=== PATIENT | female | born 1985 | race Caucasian/White ===

== ENCOUNTER 2016-07-29 00:44 | Emergency (ER) | payer SELFPAY ==
[~2016-07-29] VITALS: Ht 167.6 cm; Wt 145.1 kg
[2016-07-29] MEDS ORDERED: diphenhydrAMINE 50 MG/ML INJ (BENADRYL) IM ONE (01:30)
--- NOTE | 2016-07-29 01:52 | ED Headache ---
General Chief Complaint: Head/Cervical Problems Stated Complaint: VOMITING, HEADACHE Nursing Triage Note: patient reports migraine since waking up on the , patient reports having history of migraines, reports has taken benadryl today without improvement Nursing Sepsis Screen: No Definite Risk Source: patient History of Present Illness Time seen by provider: 01:12 Initial Comments PT ARRIVES VIA POV FROM HOME C/O HEADACHE SINCE WAKING AT 0800 THIS AM HAS HAD NAUSEA AND VOMITED X 1--IS NOT NAUSEATED AT THIS TIME HEADACHE IS BEHIND EYES AND LIKE BAND AROUND HEAD NO VISION CHANGES NO PARESTHESIAS OR MOTOR DEFICITS C/O BEING SLIGHTLY DIZZY NO NECK PAIN NO RECENT ILLNESS OR FEVER, ETC. PT STATES SHE HAS CHRONIC MIGRAINES, AND GETS 3-4 HEADACHES A WEEK. THIS HEADACHE IS EXACTLY THE SAME PREVIOUS HEADACHES TOOK 1 BENADRYL AND 1 ASPIRIN WITHOUT RELIEF STATES SHE HAS BEEN ON SEVERAL MAINTENANCE / PREVENTATIVE MEDICATIONS FOR HEADACHES, BUT HAS NOT HAD ANY FOR 3-4 MONTHS, PT STATES "NONE OF THEM HAVE EVER WORKED" PT STATES SHE USUALLY GETS A SHOT OF BENADRYL AND IT ALWAYS WORKS--STATES THE ORAL BENADRYL SOMETIMES WORKS PT STATES HER NEUROLOGIST TOLD HER NOT TO EVER TAKE TYLENOL OR IBUPROFEN BECAUSE IT WOULD MAKE HER HAVE REBOUND HEADACHES--HAS NOT SEEN NEUROLOGIST IN A LONG TIME. NO PCP--STATES SHE JUST MOVED HERE FROM [place]. Allergies and Home Medications Allergies Coded Allergies: No Known Drug Allergies (Unverified , 07/29/16) Home Medications No Active Prescriptions or Reported Meds Constitutional: see HPI dizziness Eyes: No Symptoms Reported Ears, Nose, Mouth, Throat: no symptoms reported Respiratory: no symptoms reported Cardiovascular: no symptoms reported Gastrointestinal: see HPI Genitourinary: no symptoms reported : No LMP: Jul 03, 2016 (PERIODS ALWAYS IRREGULARNO CONTROL) Musculoskeletal: no symptoms reported Skin: no symptoms reported Psychiatric/Neurological: See HPI Headache Past Agkmftd-Oailcz-Ruqujd Hx Patient Social History Alcohol Use: Rarely Uses Recreational Drug Use: Yes (THC, METH--DENIES IV USE) Smoking Status: Current Everyday Smoker Type Used: Cigarettes Recent Foreign Travel: No Contact w/Someone Who Travel: No Recent Infectious Disease Expo: No Recent Hopitalizations: No Surgeries HX Surgeries: Yes Surgeries: Gallbladder Respiratory Hx Respiratory Disorders: No Cardiovascular Hx Cardiac Disorders: Yes Cardiac Disorders: Atrial Fibrillation Neurological Hx Neurological Disorders: Yes Neurological Disorders: Headaches /Migraines Reproductive System : No Hx Reproductive Disorders: Yes (IRREGULAR PERIODS) Sexually Transmitted Disease: No Female Reproductive Disorders: Menstrual Problems Genitourinary Hx Genitourinary Disorders: No Gastrointestinal Hx Gastrointestinal Disorders: Yes (S/P SHARMILA) Gastrointestinal Disorders: Gall Bladder Disease Musculoskeletal Hx Musculoskeletal Disorders: No Endocrine Hx Endocrine Disorders: No HEENT HX ENT Disorders: No Cancer Hx Cancer: No Psychosocial Hx Psychiatric Problems: No Integumentary HX Skin/Integumentary Disorder: No Blood Transfusions Hx Blood Disorders: No Physical Exam Vital Signs Vital Sign - Last 12Hours 07/29/16 01:04 Temp 97.6 Pulse 83 Resp 18 B/P 183/130 Pulse Ox 97 O2 Delivery Room Air Capillary Refill : Less Than 3 Seconds General Appearance: WD/WN no apparent distress obese other (REEKS OF CIGARETTES) HEENT: PERRL/EOMI normal ENT inspection TMs normal pharynx normal Neck: full range of motion supple tender lateral (MILD )No tender midline Cardiovascular: normal peripheral pulses regular rate, rhythm no edema no JVD no murmur Respiratory: normal breath sounds no respiratory distress no accessory muscle use Gastrointestinal: non tender soft Back: normal inspection no CVA tenderness Extremities: normal range of motion non-tender normal inspection no pedal edema no calf tenderness normal capillary refill Psychiatric: alert oriented x 3 Crainal Nerves: normal hearing normal speech PERRL Coordination/Gait: normal gait Motor/Sensory: no motor deficit no sensory deficit Skin: normal color warm/dry Progress/Results/Core Measures Results/Orders My Orders Orders-SAMY EVANS DO Diphenhydramine Injection (Benadryl Inje (07/29/16 01:30) Ketorolac Injection (Toradol Injection) (07/29/16 02:00) Medications Given in ED Current Medications Medications Dose Ordered Sig/Eze Route Start Time Stop Time Status Last Admin Dose Admin Diphenhydramine HCl 50 mg ONCE ONCE IM 07/29/16 01:30 07/29/16 01:31 DC 07/29/16 01:38 50 MG Ketorolac Tromethamine 60 mg ONCE ONCE IM 07/29/16 02:00 07/29/16 02:01 DC 07/29/16 02:04 60 MG Vital Signs/I&O Vital Sign - Last 12Hours 07/29/16 07/29/16 01:04 02:24 Temp 97.6 Pulse 83 72 Resp 18 18 B/P 183/130 Pulse Ox 97 98 O2 Delivery Room Air Blood Pressure Mean: 147 Progress Note : Progress Note HEADACHE EASED AT DISMISSAL Departure Impression Impression: Primary Impression: Headache Additional Impression: REPORTED HISTORY OF CHRONIC HEADACHE DISORDER Disposition: 01 HOME, SELF-CARE Condition: Stable Departure-Patient Inst. Referrals: NO,LOCAL PHYSICIAN (PCP) Primary Care Physician Patient Instructions: Headache, Adult (DC) Add. Discharge Instructions: HOME, REST LOTS OF CLEAR LIQUIDS FOLLOW UP WITH OF CHOICE TO ESTABLISH CARE--LIST PROVIDED All discharge instructions reviewed with patient and/or family. Voiced understanding. Scripts No Active Prescriptions or Reported Meds Work/School Note: Local Medical Staff Listing SAMY EVANS DO Jul 29, 2016 01:52
[2016-07-29] MEDS ORDERED: KETOROLAC 60 MG/2 ML VIAL IM ONE (02:00)
[2016-07-29 02:24] VITALS: BP 145/98
== END 2016-07-29 02:25 | disposition home or self-care (01) ==
LOC: ER 00:49
DX: R51 Headache (principal); F17.210 Nicotine dependence, cigarettes, uncomplicated
CPT/HCPCS: 96372; 99282

== ENCOUNTER 2016-08-19 21:11 | Emergency (ER) | payer SELFPAY ==
[~2016-08-19] VITALS: Ht 167.6 cm; Wt 145.1 kg
--- OUTSIDE RECORDS SUMMARY | 2016-08-19 21:17 | XMS REPORT | Continuity of Care Document ---
Author Author [facility] Organization [facility] Address Unknown Phone Unavailable Care Team Providers Care Talent Acquisition Associate Name Role Phone NO, LOCAL PHYSICIAN PCP Unavailable Insurance Providers Payer Name Policy Number Subscriber Name Relationship Unknown Advance Directives Directive Response Recorded Date/Time Advance Directives No 07/29/16 1:04am Resuscitation Status Full Code 07/29/16 1:04am Chief Complaint and Reason for Visit Chief Complaint Head/Cervical Problems Reason for Visit Headache REPORTED HISTORY OF CHRONIC HEADACHE DISORDER Problems Active Problems Medical Problem Onset Date Status Headache Unknown Acute Medications No known medications. Social History Social History Problem Response Recorded Date/Time Alcohol Use Rarely Uses 07/29/2016 1:55am Recreational Drug Use Y THC, METH--DENIES IV USE 07/29/2016 1:55am Recent Foreign Travel No 07/29/2016 1:04am Recent Infectious Disease Exposure No 07/29/2016 1:04am Hospitalization with Isolation Denies 07/29/2016 1:04am Sexually Transmitted Disease No 07/29/2016 1:04am Smoking Status Current Everyday Smoker 07/29/2016 1:04am Type Used Cigarettes 07/29/2016 1:04am Recent Hopitalizations No 07/29/2016 1:04am Sexually Transmitted Disease No 07/29/2016 1:04am Hospitalization with Isolation Denies 07/29/2016 1:04am Query Response Start Date Stop Date Smoking Status Current Everyday Smoker Hospital Discharge Instructions No hospital discharge instructions. Plan of Care Discharge Date 07/29/16 2:25am Disposition 01 HOME, SELF-CARE Condition at Discharge Stable Instructions/Education Provided Headache, Adult (DC) Forms Provided Local Medical Staff Listing Prescriptions See Medication Section Referrals NO,LOCAL PHYSICIAN - Primary Care Physician Additional Instructions/Education HOME, REST LOTS OF CLEAR LIQUIDS FOLLOW UP WITH OF JEI TO ESTABLISH CARE--LIST PROVIDED All discharge instructions reviewed with patient and/or family. Voiced understanding. Functional Status Query Response Date Recorded Patient Orientation Person Place Time Situation July 29, 2016 1:09am Comprehension Ability Understands Concepts July 29, 2016 1:09am Allergies, Adverse Reactions, Alerts No known allergies. Immunizations No immunization records. Vital Signs Acute Vital Signs Vital Response Date/Time Temperature (Fahrenheit) 97.6 degrees F (97.6 - 99.5) 07/29/2016 1:04am Temperature (Calculated Celsius) 36.73855 degrees C (36.4 - 37.5) 07/29/2016 1:04am Pulse Rate (adult) 72 bpm (60 - 90) 07/29/2016 2:24am Respiratory Rate 18 bpm (12 - 24) 07/29/2016 2:24am O2 Sat by Pulse Oximetry 98 % (88 - 100) 07/29/2016 2:24am Blood Pressure 145/98 mm Hg 07/29/2016 2:24am Blood Pressure Mean 147 mm Hg 07/29/2016 1:04am Pain Numeric Pain Scale 4 07/29/2016 2:04am Height (Feet) 5 feet 07/29/2016 1:04am Height (Inches) 6 inches 07/29/2016 1:04am Height (Calculated Centimeters) 167.042031 cm 07/29/2016 1:04am Weight (Pounds) 320 pounds 07/29/2016 1:04am Weight (Calculated Kilograms) 145.630775 kilograms 07/29/2016 1:04am Capillary Refill Capillary Refill Less Than 3 Seconds 07/29/2016 1:04am Height 5 ft 6 in Weight 320 lb Body Mass Index 51.6 kg/m^2 Results No known relevant diagnostic tests, laboratory data and/or discharge summary. Procedures No known history of procedures. Encounters Encounter Location Arrival/Admit Date Discharge/Depart Date Attending Provider Departed Emergency Room [facility] 07/29/16 12:49am 2:25am SAMY EVANS DO Recent Diagnosis
[2016-08-19] MEDS ORDERED: amLODIPine 5 MG (NORVASC) TAB PO ONE (21:30)
[2016-08-19] MEDS ORDERED: ASPIRIN 81 MG CHEW (CHILDREN'S ASA) PO ONE (21:30)
[2016-08-19 21:37] LABS: BASOPHILS # (AUTO) 0.1 10^3/uL (0.0-0.1); BASOPHILS % (AUTO) 1 % (0-10); EOSINOPHILS # (AUTO) 0.3 10^3/uL (0.0-0.3); EOSINOPHILS % (AUTO) 2 % (0-10); LYMPHOCYTES # (AUTO) 4.1 X 10^3 (1.0-4.0); LYMPHOCYTES % (AUTO) 36 % (12-44); MEAN CORPUSCULAR HEMOGLOBIN 28 PG (25-34); MEAN CORPUSCULAR HGB CONC 34 G/DL (32-36); MEAN CORPUSCULAR VOLUME 84 FL (80-99); MEAN PLATELET VOLUME 9.7 FL (7.4-10.4); MONOCYTES % (AUTO) 9 % (0-12); NEUTROPHILS % (AUTO) 52 % (42-75); PLATELET COUNT 347 10^3/uL (130-400); RED BLOOD COUNT 4.81 10^6/uL (4.35-5.85); WHITE BLOOD COUNT 11.5 10^3/uL (4.3-11.0)
--- NOTE | 2016-08-19 21:45 | ED Chest Pain ---
General Chief Complaint: Chest Pain Stated Complaint: CHEST TIGHTNESS Nursing Triage Note: PT TO ED 6 W/ C/O CHEST TIGHTNESS ONSET THIS AM. DOES REPORT RECENT C/O SHAKING X3 DAYS. ALSO C/O DIZZINESS Nursing Sepsis Screen: No Definite Risk Source: patient Exam Limitations: no limitations History of Present Illness Time seen by provider: 21:15 Initial Comments Here with complaint of chest tightness this morning as well as shaking the last few days. Patient has history of hypertension and is on medicine for this but noted her blood pressure was elevated this morning so she took one of her mother 's blood pressure pills. This appears to be lisinopril 10 HCTZ combination. She doesn't present with elevated blood pressure tonight. Chest pain is a tightness in the center of her chest and is associated with dizziness. Denies nausea or vomiting or diaphoresis. Timing/Duration: 12 hours Severity/Quality: mild, tightness Location: central Radiation: no radiation Activities at Onset: none Prior CP/Workup: no prior chest pain ASA po MINK RANCHER: No NTG SL MINK RANCHER: No Associated Symptoms: No abdominal pain, No back pain, dizzinessNo nausea/ vomiting, No shortness of breath, No weakness Allergies and Home Medications Allergies Coded Allergies: No Known Drug Allergies (Unverified , 07/29/16) Home Medications No Active Prescriptions or Reported Meds Review of Systems Constitutional: see HPINo chills, No diaphoresis, No fever, No weakness Respiratory: No Symptoms Reported Cardiovascular: See HPI Chest PainDenies Edema, Lightheadedness Gastrointestinal: No Symptoms Reported Genitourinary: No Symptoms Reported Musculoskeletal: no symptoms reported Skin: no symptoms reported All Other Systems Reviewed Negative Unless Noted: Yes Past Nztgstp-Qtqonk-Obsjzp Hx Patient Social History Alcohol Use: Denies Use Recreational Drug Use: No Smoking Status: Current Everyday Smoker Type Used: Cigarettes Recent Foreign Travel: No Contact w/Someone Who Travel: No Recent Infectious Disease Expo: No Recent Hopitalizations: No Surgeries HX Surgeries: Yes Surgeries: Gallbladder Respiratory Hx Respiratory Disorders: No Cardiovascular Hx Cardiac Disorders: Yes Cardiac Disorders: Atrial Fibrillation Neurological Hx Neurological Disorders: Yes Neurological Disorders: Headaches /Migraines Reproductive System Hx Reproductive Disorders: Yes (IRREGULAR PERIODS) Sexually Transmitted Disease: No Female Reproductive Disorders: Menstrual Problems Genitourinary Hx Genitourinary Disorders: No Gastrointestinal Hx Gastrointestinal Disorders: Yes (S/P SHARMILA) Gastrointestinal Disorders: Gall Bladder Disease Musculoskeletal Hx Musculoskeletal Disorders: No Endocrine Hx Endocrine Disorders: No HEENT HX ENT Disorders: No Cancer Hx Cancer: No Psychosocial Hx Psychiatric Problems: No Integumentary HX Skin/Integumentary Disorder: No Blood Transfusions Hx Blood Disorders: No Reviewed Nursing Assessment Reviewed/Agree w Nursing PMH: Yes Family Medical History Significant Family History: No Pertinent Family Hx Physical Exam Vital Signs Vital Sign - Last 12Hours 08/19/16 21:15 Temp 97.8 Pulse 86 Resp 20 B/P 218/125 Pulse Ox 97 O2 Delivery Room Air Capillary Refill : Less Than 3 Seconds General Appearance: No Apparent Distress WD/WN Neck: Full Range of Motion Supple Respiratory: Lungs Clear Normal Breath Sounds Cardiovascular: Regular Rate, Rhythm No Murmur Gastrointestinal: Non Tender Soft Extremity: Normal Inspection Non Tender No Calf Tenderness Neurologic/Psychiatric: Alert Oriented x3 Skin: Normal Color Warm/Dry Focused Exam Lactic Acid Level Laboratory Tests Test 08/19/16 21:20 Alanine Aminotransferase (ALT/SGPT) 27U/L (0-55) Albumin 4.3G/DL (3.2-4.5) Alkaline Phosphatase 97U/L (40-136) Anion Gap 13MMOL/L (5-14) Aspartate Amino Transf (AST/SGOT) 19U/L (5-34) BUN/Creatinine Ratio 16 Blood Urea Nitrogen 16MG/DL (7-18) Calcium Level 9.4MG/DL (8.5-10.1) Carbon Dioxide Level 26MMOL/L (21-32) Chloride Level 102MMOL/L (98-107) Creatinine 0.98MG/DL (0.60-1.30) Estimat Glomerular Filtration Rate > 60 Glucose Level 85MG/DL (70-105) Magnesium Level 2.1MG/DL (1.8-2.4) Myoglobin 28.0NG/ML (10.0-92.0) Potassium Level 4.0MMOL/L (3.6-5.0) Sodium Level 141MMOL/L (135-145) Total Bilirubin 0.3MG/DL (0.1-1.0) Total Protein 7.7G/DL (6.4-8.2) Troponin I < 0.30NG/ML (<0.30) Progress/Results/Core Measures Results/Orders Lab Results Laboratory Tests Test 08/19/16 21:20 Range/Units Activated Partial Thromboplast Time 32 24-35 SEC Alanine Aminotransferase (ALT/SGPT) 27 0-55 U/L Albumin 4.3 3.2-4.5 G/DL Alkaline Phosphatase 97 40-136 U/L Anion Gap 13 5-14 MMOL/L Aspartate Amino Transf (AST/SGOT) 19 5-34 U/L BUN/Creatinine Ratio 16 Basophils # (Auto) 0.1 0.0-0.1 10^3/uL Basophils (%) (Auto) 1 0-10 % Blood Urea Nitrogen 16 7-18 MG/DL Calcium Level 9.4 8.5-10.1 MG/DL Carbon Dioxide Level 26 21-32 MMOL/L Chloride Level 102 98-107 MMOL/L Creatinine 0.98 0.60-1.30 MG/DL Eosinophils # (Auto) 0.3 0.0-0.3 10^3/uL Eosinophils (%) (Auto) 2 0-10 % Estimat Glomerular Filtration Rate > 60 Glucose Level 85 70-105 MG/DL Hematocrit 40 35-52 % Hemoglobin 13.6 11.5-16.0 G/DL INR Comment 1.0 0.8-1.4 Lymphocytes # (Auto) 4.1 H 1.0-4.0 X 10^3 Lymphocytes (%) (Auto) 36 12-44 % Magnesium Level 2.1 1.8-2.4 MG/DL Mean Corpuscular Hemoglobin 28 25-34 PG Mean Corpuscular Hemoglobin Concent 34 32-36 G/DL Mean Corpuscular Volume 84 80-99 FL Mean Platelet Volume 9.7 7.4-10.4 FL Monocytes # (Auto) 1.0 0.0-1.0 X 10^3 Monocytes (%) (Auto) 9 0-12 % Myoglobin 28.0 10.0-92.0 NG/ML Neutrophils # (Auto) 6.0 1.8-7.8 X 10^3 Neutrophils (%) (Auto) 52 42-75 % Platelet Count 347 130-400 10^3/uL Potassium Level 4.0 3.6-5.0 MMOL/L Prothrombin Time 13.0 12.2-14.7 SEC Red Blood Count 4.81 4.35-5.85 10^6/uL Red Cell Distribution Width 15.0 H 10.0-14.5 % Sodium Level 141 135-145 MMOL/L Total Bilirubin 0.3 0.1-1.0 MG/DL Total Protein 7.7 6.4-8.2 G/DL Troponin I < 0.30 <0.30 NG/ML White Blood Count 11.5 H 4.3-11.0 10^3/uL My Orders Orders-WANDY ALVARADO MD Cbc With Automated Diff (08/19/16:) Magnesium (08/19/16) Chest 1 View, Ap/Pa Only (08/19/16) Ekg Tracing (08/19/16) Cardiac Profile 1 (08/19/16) Comprehensive Metabolic Panel (08/19/16) Myoglobin Serum (08/19/16) Protime With Inr (08/19/16) Partial Thromboplastin Time (08/19/16) Monitor-Rhythm Ecg Trace Only (08/19/16) Lipid Panel (08/20/16 06:00) Aspirin Chewable Tablet (Baby Aspirin Ch (08/19/16 21:30) Saline Lock/Iv-Start (08/19/16:) Amlodipine Tablet (Norvasc Tablet) (08/19/16 21:30) Medications Given in ED Current Medications Medications Dose Ordered Sig/Eze Route Start Time Stop Time Status Last Admin Dose Admin Amlodipine Besylate 10 mg ONCE ONCE PO 08/19/16 21:30 08/19/16 21:31 DC 08/19/16 21:32 10 MG Aspirin 324 mg ONCE ONCE PO 08/19/16 21:30 08/19/16 21:31 DC 08/19/16 21:32 324 MG Vital Signs/I&O Vital Sign - Last 12Hours 08/19/16 21:15 Temp 97.8 Pulse 86 Resp 20 B/P 218/125 Pulse Ox 97 O2 Delivery Room Air Blood Pressure Mean: 156 Progress Note : Progress Note Seen and evaluated. IV, labs, EKG and chest x-ray ordered. ASA 324 mg by mouth given. Monitor patient. Norvasc 10 mg by mouth given. Monitor patient. 2240: Blood pressure improved to 150s over 90s. I did discuss the case with Dr. Wahl. He will see the patient in clinic tomorrow. There are no acute findings otherwise and she is improved. She states she still feels a little shaky but better. Discharged home with return precautions. Patient verbalize understanding instructions and agreement with plan. ECG Initial ECG Impression Date: Aug 19, 2016 Initial ECG Impression Time: 21:20 Initial ECG Rate: 85 Initial ECG Rhythm: Normal Sinus Initial ECG Impression: Normal Initial ECG Comparisson: No Previous ECG Available Comment Sinus rhythm with normal axis. No evidence of ST elevation CA. No previous available for comparison. Interpreted by me. Diagnostic Imaging Diagonstic Imaging: Xray Plain Films/CT/US/NM/MRI: chest Comments NAME: KAREN YOUNGBLOOD [facility] REC#: [id number] PT STATUS: REG ER : 1985 PHYSICIAN: WANDY ALVARADO MD ADMIT DATE: 08/19/16/ER Signed Date of Exam: 08/19/16 CHEST 1 VIEW, AP/PA ONLY Portable chest. INDICATION: Chest pain. FINDINGS: There is no focal alveolar consolidation evident. There is no effusion demonstrated. There is no pneumothorax. Heart size and mediastinal contours appear appropriate. Pulmonary vascularity appears within normal limits. No acute osseous abnormality is demonstrated. IMPRESSION: 1. No radiographic evidence of an acute cardiopulmonary process. Dictated by: Dictated on workstation # [id number] Dict: 08/19/162142 Trans: 08/19/[id number] Interpreted by: MI LEVY MD Electronically signed by:MI LEVY MD 08/19/162209 Departure Impression Impression: Primary Impression: Uncontrolled hypertension Disposition: 01 HOME, SELF-CARE Condition: Improved Departure-Patient Inst. Decision time for Depature: 22:52 Referrals: KAREN WAHL MD NO,LOCAL PHYSICIAN (PCP) Primary Care Physician Patient Instructions: Chest Pain (DC), High Blood Pressure (DC) Add. Discharge Instructions: All discharge instructions reviewed with patient and/or family. Voiced understanding. Take medications as directed. Call Dr. Wahl's office in the morning for appointment tomorrow. Let them know that the case was discussed with him and he wanted to see you in clinic same day. Return for worsening, fever, vomiting , weakness, breathing problems or other concerns as needed. Continue home medications as directed. Scripts Amlodipine Besylate 10 Mg [id number] Mg PO DAILY #30 TAB Ref 0 Prov:WANDY ALVARADO MD 08/19/16 WANDY ALVARADO MD Aug 19, 2016 21:44
[2016-08-19 21:52] LABS: ALANINE AMINOTRANSFERASE 27 U/L (0-55); ALBUMIN 4.3 G/DL (3.2-4.5); ANION GAP 13 MMOL/L (5-14); ASPARTATE AMINO TRANSFERASE 19 U/L (5-34); BILIRUBIN,TOTAL 0.3 MG/DL (0.1-1.0); BLOOD UREA NITROGEN 16 MG/DL (7-18); BUN/CREATININE RATIO 16; CALCIUM 9.4 MG/DL (8.5-10.1); CARBON DIOXIDE 26 MMOL/L (21-32); CHLORIDE 102 MMOL/L (98-107); CREATININE SERUM 0.98 MG/DL (0.60-1.30); GFR ESTIMATED > 60; GLUCOSE 85 MG/DL (70-105); MAGNESIUM 2.1 MG/DL (1.8-2.4); SODIUM 141 MMOL/L (135-145); TOTAL PROTEIN 7.7 G/DL (6.4-8.2)
[2016-08-19] MEDS ORDERED: AMLO10TA2 PO (22:54)
[2016-08-19 23:00] VITALS: BP 155/94
== END 2016-08-19 23:00 | disposition home or self-care (01) ==
LOC: EDUNIT# 21:11 → ER 21:13
DX: I16.0 Hypertensive urgency (principal); F17.210 Nicotine dependence, cigarettes, uncomplicated; Z79.899 Other long term (current) drug therapy
CPT/HCPCS: 36415; 71010; 80053; 83735; 83874; 84484; 85025; 85610; 85730; 93005

== ENCOUNTER → 2017-05-07 | Outpatient (CLI) | payer MEDICAID ==
[~2017-05-07] MED LIST: AMLO10TA2 PO
--- NOTE | 2017-05-07 15:43 | Diagnostic Imaging Report ---
EXAMINATION: Pelvic ultrasound. INDICATION: Dysfunctional uterine bleeding. FINDINGS: There are no prior studies available for comparison. The uterus is nongravid and not enlarged measuring 7.3 x 5.3 x 4.4 cm. The endometrial lining is slightly thickened measuring 7-8 mm (normal 5 mm or less). This finding is nonspecific however. Correlation with the patient's menstrual cycle will be recommended. There is no focal mass involving the uterus. Both ovaries are identified. There is blood flow to each ovary. There are also a few subcentimeter follicles on each ovary. There is no solid pelvic mass or free fluid collection noted. IMPRESSION: There is no acute pelvic abnormality identified. Dictated by: Dictated on workstation # [id number]
== END ==
LOC: RAD 09:41
PROVIDERS: ATTEND Family Medicine
DX: N93.8 Other specified abnormal uterine and vaginal bleeding (principal)
CPT/HCPCS: 76830; 76856

== ENCOUNTER 2017-07-28 12:51 | Emergency (ER) | payer MEDICAID ==
[~2017-07-28] VITALS: Ht 167.6 cm; Wt 147.0 kg
[2017-07-28] MEDS ORDERED: METF500T8 (13:36)
[2017-07-28] MEDS ORDERED: ZONI100C3 PO (13:48)
--- NOTE | 2017-07-28 14:04 | ED Headache ---
General Chief Complaint: Head/Cervical Problems Stated Complaint: MIGRAINE Nursing Triage Note: pt reprots migraine x 4 days. pt states home medication has not been helping. pt reprts epsiodes of n/v but none today. Nursing Sepsis Screen: No Definite Risk Source: patient Exam Limitations: no limitations History of Present Illness Date Seen by Provider: Jul 28, 2017 Time Seen by Provider: 14:04 Initial Comments 31-year-old female patient presents to the emergency department with reports of a four-day onset of migraine headache. Patient states she has chronic migraines , but is typically able to control them with her usual medications. Denies using her home medications for this headache. States she moved here recently from [place] (later states she moved here one year ago from [place]). Patient had a neurologist in [place], but has not established care with a neurologist since moving here. Patient states she has seen TERESA Juarez at [facility] since moving here. Reports headache feels like her typical migraine headaches. Describes the headache as bandlike around the head. Does complain of photophobia, sound sensitivity, nausea, and vomiting. States she is not able to take Tylenol or ibuprofen [id number] for her headaches because "they make the headaches worse." Timing/Duration: waxing and waning, other (four-day onset) Severity/Quality: pressure, throbbing Prior Headaches/Recent Trauma: chronic headaches Modifying Factors: worse with exposure to light, worse with other (exposure to sound) Allergies and Home Medications Allergies Coded Allergies: No Known Drug Allergies (Unverified , 07/29/16) Home Medications Amlodipine Besylate 10 Mg Tablet, 10 MG PO DAILY Prescribed by: WANDY ALVARADO on 08/19/16 225 Ondansetron 8 Mg Tab.rapdis, 8 MG PO Q6H PRN for NAUSEA/VOMITING-1ST LINE Prescribed by: MAXI REARDON on 07/28/17 1535 Zonisamide 100 Mg Capsule, 100 MG PO BID, (Reported) Constitutional: No chills, No dizziness, No fever, No malaise, No weakness Eyes: Photophobia Ears, Nose, Mouth, Throat: no symptoms reported Respiratory: no symptoms reported Cardiovascular: no symptoms reported Gastrointestinal: No abdominal pain, No constipation, No diarrhea, nausea, vomiting Genitourinary: no symptoms reported Musculoskeletal: no symptoms reported Skin: no symptoms reported Psychiatric/Neurological: Headache, Denies Numbness, Denies Paresthesia, Denies Seizure, Denies Tingling, Denies Weakness All Other Systems Reviewed Negative Unless Noted: Yes (Negative excepted noted.) Past Rzbhirx-Vqquzt-Wshzlr Hx Patient Social History Alcohol Use: Denies Use Recreational Drug Use: No Smoking Status: Current Someday Smoker Type Used: Cigarettes Recent Foreign Travel: No Contact w/Someone Who Travel: No Recent Infectious Disease Expo: No Recent Hopitalizations: No Physical Abuse: No Sexual Abuse: No Mistreated: No Fear: No Surgeries History of Surgeries: Yes Surgeries: Gallbladder Respiratory History of Respiratory Disorde: No Cardiovascular History of Cardiac Disorders: Yes Cardiac Disorders: Atrial Fibrillation, Hypertension Neurological History of Neurological Disord: Yes Neurological Disorders: Headaches /Migraines Reproductive System Hx Reproductive Disorders: Yes (IRREGULAR PERIODS) Sexually Transmitted Disease: No Female Reproductive Disorders: Menstrual Problems Genitourinary History of Genitourinary Disor: No Gastrointestinal History of Gastrointestinal Di: Yes (S/P SHARMILA) Gastrointestinal Disorders: Gall Bladder Disease Musculoskeletal History of Musculoskeletal Dis: No Endocrine History of Endocrine Disorders: Yes Endocrine Disorders: Diabetes, Non-Insulin dep HEENT History of HEENT Disorders: No Cancer History of Cancer: No Psychosocial History of Psychiatric Problem: No Suicide Risk Score: 0 Integumentary History of Skin or Integumenta: No Blood Transfusions History of Blood Disorders: No Reviewed Nursing Assessment Reviewed/Agree w Nursing PMH: Yes Family Medical History Significant Family History: No Pertinent Family Hx Physical Exam Vital Signs Vital Signs - First Documented 07/28/17 13:30 Temp 97.8 Pulse 90 Resp 18 B/P (MAP) 158/106 (123) Pulse Ox 95 Capillary Refill : Less Than 3 Seconds General Appearance: WD/WN, no apparent distress HEENT: PERRL/EOMI, normal ENT inspection, TMs normal, pharynx normal, photophobia Neck: full range of motion, supple, normal inspection, other (paraspinous muscles tender at the base of the skull bilaterally) Cardiovascular: normal peripheral pulses, regular rate, rhythm, no edema, no gallop, no murmur Respiratory: lungs clear, normal breath sounds, no respiratory distress, no accessory muscle use Gastrointestinal: normal bowel sounds, non tender, soft, no organomegaly Back: normal inspection Extremities: no pedal edema, normal capillary refill Psychiatric: alert, oriented x 3 Crainal Nerves: normal hearing, normal speech, PERRL Coordination/Gait: normal finger to nose, normal gait, negative Romberg's sign Motor/Sensory: no motor deficit, no sensory deficit, no pronator drift Skin: normal color, warm/dry Progress/Results/Core Measures Results/Orders My Orders Orders - MAXI REARDON Ketorolac Injection (Toradol Injection) (07/28/17 14:59) Orphenadrine Injection (Norflex Injectio (07/28/17 14:59) Ondansetron Injection (Zofran Injectio (07/28/17 15:00) Saline Lock/Iv-Start (07/28/17 14:59) Ns Iv 1000 Ml (Sodium Chloride 0.9%) (07/28/17 14:59) Diphenhydramine Injection (Benadryl Inje (07/28/17 14:59) Acetaminophen Tablet (Tylenol Tablet) (07/28/17 15:59) Dexamethasone Injection (Decadron Inject (07/28/17 16:00) Medications Given in ED Vital Signs/I&O Vital Sign - Last 12Hours 07/28/17 07/28/17 13:30 16:14 Temp 97.8 Pulse 90 79 Resp 18 18 B/P (MAP) 158/106 (123) 160/106 Pulse Ox 95 96 Blood Pressure Mean: 123 Departure Communication (Admissions) Progress Notes Patient seen and evaluated. Patient given 1 liter normal saline, 30 mg Toradol IV, Benadryl 25 mg, Norflex 60 mg, and Zofran 4 mg IV. Patient reports symptoms improved, but states pain is now a 2/10. Patient states she typically receives a steroid in her IV for the migraines. Patient Does not want any narcotics given. Patient given 1000 g Tylenol by mouth and Decadron 10 mg IV 1 dose. Discharge to home. Patient follow-up with her primary care provider for recheck. Impression Impression: Primary Impression: Migraine headache Qualified Codes: G43.909 - Migraine, unspecified, not intractable, without status migrainosus Disposition: 01 HOME, SELF-CARE Condition: Improved Departure-Patient Inst. Decision time for Depature: 15:22 Referrals: [facility] ([place]) Primary Care Physician JACQUELIN CABRERA APRN (Family) Primary Care Physician Patient Instructions: Migraine Headache (DC) Add. Discharge Instructions: All discharge instructions reviewed with patient and/or family. Voiced understanding. Continue usual home medications. Follow-up with your family practitioner at [facility] for recheck, call for appointment time today. Return to the emergency department for worsened pain, vomiting, dizziness, fever, shortness of air, seizure, chest pain, or any other concerns. Scripts Ondansetron (Ondansetron Odt) 8 Mg Tab.rapdis 8 MG PO Q6H Y for NAUSEA/VOMITING-1ST LINE, #10 TAB 0 Refills Prov: MAXI REARDON 07/28/17 MAXI REARDON Jul 28, 2017 14:04
[2017-07-28] MEDS ORDERED: diphenhydrAMINE 50 MG/ML INJ (BENADRYL) IV STA (14:59)
[2017-07-28] MEDS ORDERED: NS IV 1000 ML 1,000 ML IV ONE (14:59)
[2017-07-28] MEDS ORDERED: ORPHENADRINE 60 MG/2 ML (NORFLEX) AMP IV STA (14:59)
[2017-07-28] MEDS ORDERED: KETOROLAC 30 MG/ML VIAL IVP STA (14:59)
[2017-07-28] MEDS ORDERED: ONDANSETRON 4 MG/2 ML (SDV) Z0FRAN IVP ONE (15:00)
[2017-07-28] MEDS ORDERED: ONDA8TAB13 PO (15:35)
[2017-07-28] MEDS ORDERED: ACETAMINOPHEN 500 MG TAB (TYLENOL) PO STA (15:59)
[2017-07-28] MEDS ORDERED: DEXAMETHASONE 10 MG/ML (DECADRON) 1 ML VIAL IV ONE (16:00)
[2017-07-28 16:14] VITALS: BP 160/106
== END 2017-07-28 16:15 | disposition home or self-care (01) ==
LOC: EDUNIT# 12:51 → ER 12:53
DX: G43.909 Migraine, unspecified, not intractable, without status migrainosus (principal); I48.91 Unspecified atrial fibrillation; I10 Essential (primary) hypertension; E11.9 Type 2 diabetes mellitus without complications; F17.210 Nicotine dependence, cigarettes, uncomplicated; Z90.49 Acquired absence of other specified parts of digestive tract

== ENCOUNTER 2018-04-29 15:18 | Emergency (ER) | payer SELFPAY ==
[~2018-04-29] VITALS: Ht 167.6 cm; Wt 145.1 kg
[~2018-04-29 15:18] MED LIST changes: -AMLO10TA2 PO; +AMLO10TA6 PO; +METF500T8; +ONDA8TAB13 PO; +ZONI100C3 PO
--- OUTSIDE RECORDS SUMMARY | 2018-04-29 15:22 | XMS REPORT ---
Author Author JACQUELIN CABRERA Organization [facility] Address [address] [place] [address] Care Team Providers Care Grove Superintendent Name Role Phone JACQUELIN CABRERA Unavailable PROBLEMS Type Condition ICD9-CM Code [id number] Code Onset Dates Condition Status SNOMED Code Problem Mixed hyperlipidemia E78.2 Active 834029363 Problem Morbid (severe) obesity due to excess calories E66.01 Active 109203178 Problem Essential hypertension I10 Active 03216796 Problem Iron deficiency anemia secondary to inadequate dietary iron intake D50.8 Active 699667632 Problem Subclinical hypothyroidism E03.9 Active 36815096 Problem Tobacco abuse counseling Z71.6 Active 236936892 Problem Tobacco abuse Z72.0 Active 603080535 Problem Body mass index (BMI) of 50-59.9 in adult Z68.43 Active 682758545 Problem Migraine without aura and without status migrainosus, not intractable G43.009 Active 405712943 Problem Hyperinsulinemia E16.1 Active 92475034 Problem Dysfunctional uterine bleeding N93.8 Active 88860386 ALLERGIES No Information ENCOUNTERS Encounter Location Date Diagnosis [facility] [id number] [place] [address] September, Abnormal TSH R94.6 [facility] [id number] [place] [address] September, Essential hypertension I10 ; Migraine without aura and without status migrainosus, not intractable G43.009 ; Morbid (severe) obesity due to excess calories E66.01 ; Iron deficiency anemia secondary to inadequate dietary iron intake D50.8 ; Hyperinsulinemia E16.1 ; Dysfunctional uterine bleeding N93.8 ; Subclinical hypothyroidism E03.9 ; Encounter for Depo-Provera contraception Z30.42 ; Tobacco abuse counseling Z71.6 and Tobacco abuse Z72.0 [facility] [id number] [place] [address] Jun, Encounter for immunization Z23 [place] [id number] [place] [address] May, Iron deficiency anemia secondary to inadequate dietary iron intake D50.8 and Subclinical hypothyroidism E03.[address] [address] May, Abnormal CBC measurement R79.89 and Abnormal TSH R94.6 [place] [address] [address] Apr, [address] [address] Apr, Abnormal CBC measurement R79.89 and Abnormal TSH R94.[address] [address] Apr, Well woman exam Z01.419 and Dysfunctional uterine bleeding N93.8 [place] [id number] [place] [address] 16 Apr, 2017 Encounter to establish care Z76.89 ; Essential hypertension I10 ; Screening cholesterol level Z13.220 and Screening for diabetes mellitus Z13.1 [place] [id number] [place] [address] 09 Apr, 2017 Encounter to establish care Z76.89 ; Essential hypertension I10 ; Screening cholesterol level Z13.220 ; Screening for diabetes mellitus Z13.1 ; History of atrial fibrillation Z86.79 ; Migraine without aura and without status migrainosus, not intractable G43.009 ; Body mass index (BMI) of 50-59.9 in adult Z68.43 and Morbid (severe) obesity due to excess calories E66.01 [facility] [address] [place] [id number] [place] [phone] Mar, Essential hypertension I10 IMMUNIZATIONS No Known Immunizations SOCIAL HISTORY Never Assessed REASON FOR VISIT Medication changes/levothyroxine PLAN OF CARE VITAL SIGNS MEDICATIONS Medication Instructions Dosage Frequency Start Date End Date Duration Status Levothyroxine Sodium 25 MCG Orally Once a day 1 tablet on an empty stomach in the morning 24h September, 30 day(s) Active RESULTS No Results PROCEDURES No Known procedures INSTRUCTIONS MEDICATIONS ADMINISTERED No Known Medications MEDICAL (GENERAL) HISTORY Type Description Date Medical History HTN Medical History A Fib Medical History Migraines without auras Surgical History Gallbladder 2008 Hospitalization History Migraines
--- OUTSIDE RECORDS SUMMARY | 2018-04-29 15:23 | XMS REPORT ---
Author Author CAROL COLE [facility] Address [address] [place] [address] Care Team Providers Care Photogrammetric Engineer Name Role Phone CAROL COLE Unavailable PROBLEMS Type Condition ICD9-CM Code [id number] Code Onset Dates Condition Status SNOMED Code Problem Subclinical hypothyroidism E03.9 Active 81486491 Problem Iron deficiency anemia secondary to inadequate dietary iron intake D50.8 Active 490731988 Problem Dysfunctional uterine bleeding N93.8 Active 95163064 Problem Body mass index (BMI) of 50-59.9 in adult Z68.43 Active 545658917 Problem Essential hypertension I10 Active 82741280 Problem Mixed hyperlipidemia E78.2 Active 604997779 Problem Morbid (severe) obesity due to excess calories E66.01 Active 980967219 Problem Migraine without aura and without status migrainosus, not intractable G43.009 Active 863328721 ALLERGIES No Known Allergies ENCOUNTERS Encounter Location Date Diagnosis [place] [address] [address] September, [place] [address] [address] Jun, Encounter for immunization Z23 [place] [address] [address] May, Iron deficiency anemia secondary to inadequate dietary iron intake D50.8 and Subclinical hypothyroidism E03.9 [place] [address] [address] May, Abnormal CBC measurement R79.89 and Abnormal TSH R94.6 [place] [address] [address] Apr, [place] [address] [address] Apr, Abnormal CBC measurement R79.89 and Abnormal TSH R94.6 [facility] [id number] [address] Apr, Well woman exam Z01.419 and Dysfunctional uterine bleeding N93.8 [facility] [id number] [address] 16 Apr, 2017 Encounter to establish care Z76.89 ; Essential hypertension I10 ; Screening cholesterol level Z13.220 and Screening for diabetes mellitus Z13.1 [facility] [id number] [address] 09 Apr, 2017 Encounter to establish care Z76.89 ; Essential hypertension I10 ; Screening cholesterol level Z13.220 ; Screening for diabetes mellitus Z13.1 ; History of atrial fibrillation Z86.79 ; Migraine without aura and without status migrainosus, not intractable G43.009 ; Body mass index (BMI) of 50-59.9 in adult Z68.43 and Morbid (severe) obesity due to excess calories E66.01 [facility] [address] [id number] [address] Mar, Essential hypertension I10 IMMUNIZATIONS No Known Immunizations SOCIAL HISTORY Never Assessed REASON FOR VISIT dx with HTN a year ago...was started on BP medication...lost medical insurance...quit taking meds about 6 months ago. today she is feeling shakey, headache, denies blurred vision, does report off and on dizziness. tobias PLAN OF CARE Activity Details Follow Up prn Reason: VITAL SIGNS Height 66 in 2017-03-07 Weight 324.4 lbs 2017-03-07 Temperature 98.0 degrees Fahrenheit 2017-03-07 Heart Rate 76 bpm 2017-03-07 Respiratory Rate 20 2017-03-07 BMI 52.35 kg/m2 2017-03-07 Blood pressure systolic 156 mmHg 2017-03-07 Blood pressure diastolic 94 mmHg 2017-03-07 MEDICATIONS Medication Instructions Dosage Frequency Start Date End Date Duration Status Norvasc 10 MG Orally Take 1/2 tablet x 7 days followed by one tablet daily as directed Mar, 30 day(s) Active RESULTS No Results PROCEDURES No Known procedures INSTRUCTIONS MEDICATIONS ADMINISTERED No Known Medications MEDICAL (GENERAL) HISTORY Type Description Date Medical History HTN Medical History A Fib Medical History Migraines without auras Surgical History Gallbladder 2009 Hospitalization History Migraines
--- OUTSIDE RECORDS SUMMARY | 2018-04-29 15:23 | XMS REPORT ---
Author Author JACQUELIN CABRERA Organization [facility] Address [address] [place] [address] Care Team Providers Care Electric Brain Wave Equipment Mechanic Name Role Phone JCAQUELIN CABRERA Unavailable PROBLEMS Type Condition ICD9-CM Code [id number] Code Onset Dates Condition Status SNOMED Code Problem Mixed hyperlipidemia E78.2 Active 856999294 Problem Morbid (severe) obesity due to excess calories E66.01 Active 032782483 Problem Essential hypertension I10 Active 99826591 Problem Iron deficiency anemia secondary to inadequate dietary iron intake D50.8 Active 041836998 Problem Subclinical hypothyroidism E03.9 Active 31037210 Problem Tobacco abuse counseling Z71.6 Active 013643035 Problem Tobacco abuse Z72.0 Active 326950010 Problem Body mass index (BMI) of 50-59.9 in adult Z68.43 Active 275377252 Problem Migraine without aura and without status migrainosus, not intractable G43.009 Active 759106156 Problem Hyperinsulinemia E16.1 Active 07231096 Problem Dysfunctional uterine bleeding N93.8 Active 48344305 ALLERGIES No Information ENCOUNTERS Encounter Location Date Diagnosis [facility] [id number] [place] [address] September, Abnormal TSH R94.6 [facility] [id number] [place] [address] September, Essential hypertension I10 ; Migraine without aura and without status migrainosus, not intractable G43.009 ; Morbid (severe) obesity due to excess calories E66.01 ; Iron deficiency anemia secondary to inadequate dietary iron intake D50.8 ; Hyperinsulinemia E16.1 ; Dysfunctional uterine bleeding N93.8 ; Subclinical hypothyroidism E03.9 ; Encounter for Depo-Provera contraception Z30.42 ; Tobacco abuse counseling Z71.6 and Tobacco abuse Z72.0 [facility] [id number] [place] [address] Jun, Encounter for immunization Z23 [place] [id number] [place] [address] May, Iron deficiency anemia secondary to inadequate dietary iron intake D50.8 and Subclinical hypothyroidism E03.[address] [address] May, Abnormal CBC measurement R79.89 and Abnormal TSH R94.6 [place] [address] [address] Apr, [address] [address] Apr, Abnormal CBC measurement R79.89 and Abnormal TSH R94.[address] [address] Apr, Well woman exam Z01.419 and Dysfunctional uterine bleeding N93.8 [place] [id number] [place] [address] 16 Apr, 2017 Encounter to establish care Z76.89 ; Essential hypertension I10 ; Screening cholesterol level Z13.220 and Screening for diabetes mellitus Z13.1 [place] [id number] [place] [address] 09 Apr, 2017 Encounter to establish care Z76.89 ; Essential hypertension I10 ; Screening cholesterol level Z13.220 ; Screening for diabetes mellitus Z13.1 ; History of atrial fibrillation Z86.79 ; Migraine without aura and without status migrainosus, not intractable G43.009 ; Body mass index (BMI) of 50-59.9 in adult Z68.43 and Morbid (severe) obesity due to excess calories E66.01 [facility] [address] [place] [id number] [place] [phone] Mar, Essential hypertension I10 IMMUNIZATIONS No Known Immunizations SOCIAL HISTORY Never Assessed REASON FOR VISIT Med per Lab Result PLAN OF CARE VITAL SIGNS MEDICATIONS Medication Instructions Dosage Frequency Start Date End Date Duration Status MetFORMIN HCl ER 500 mg Orally Once a day 1 tablet with evening meal 24h Apr, Active RESULTS No Results PROCEDURES No Known procedures INSTRUCTIONS MEDICATIONS ADMINISTERED No Known Medications MEDICAL (GENERAL) HISTORY Type Description Date Medical History HTN Medical History A Fib Medical History Migraines without auras Surgical History Gallbladder 2009 Hospitalization History Migraines
--- OUTSIDE RECORDS SUMMARY | 2018-04-29 15:23 | XMS REPORT ---
Author Author CABRERA JACQUELIN Organization [facility] Address [address] [place] [address] Care Team Providers Care Associate Editor Name Role Phone JACQUELIN CABRERA Unavailable PROBLEMS Type Condition ICD9-CM Code [id number] Code Onset Dates Condition Status SNOMED Code Problem Mixed hyperlipidemia E78.2 Active 071625612 Problem Morbid (severe) obesity due to excess calories E66.01 Active 228911445 Problem Essential hypertension I10 Active 92781229 Problem Iron deficiency anemia secondary to inadequate dietary iron intake D50.8 Active 000179542 Problem Subclinical hypothyroidism E03.9 Active 81681221 Problem Tobacco abuse counseling Z71.6 Active 211130414 Problem Tobacco abuse Z72.0 Active 217995234 Problem Body mass index (BMI) of 50-59.9 in adult Z68.43 Active 473925713 Problem Migraine without aura and without status migrainosus, not intractable G43.009 Active 940161593 Problem Hyperinsulinemia E16.1 Active 01092689 Problem Dysfunctional uterine bleeding N93.8 Active 66080263 ALLERGIES No Known Allergies ENCOUNTERS Encounter Location Date Diagnosis [facility] [id number] [place] [address] September, Abnormal TSH R94.6 [facility] [id number] [place] [address] September, Essential hypertension I10 ; Migraine without aura and without status migrainosus, not intractable G43.009 ; Morbid (severe) obesity due to excess calories E66.01 ; Iron deficiency anemia secondary to inadequate dietary iron intake D50.8 ; Hyperinsulinemia E16.1 ; Dysfunctional uterine bleeding N93.8 ; Subclinical hypothyroidism E03.9 ; Encounter for Depo-Provera contraception Z30.42 ; Tobacco abuse counseling Z71.6 and Tobacco abuse Z72.0 [facility] [id number] [place] [address] Jun, Encounter for immunization Z23 [place] [address] [address] May, Iron deficiency anemia secondary to inadequate dietary iron intake D50.8 and Subclinical hypothyroidism E03.[address] [address] May, Abnormal CBC measurement R79.89 and Abnormal TSH R94.6 [place] [address] [address] Apr, [address] [address] Apr, Abnormal CBC measurement R79.89 and Abnormal TSH R94.[address] [address] Apr, Well woman exam Z01.419 and Dysfunctional uterine bleeding N93.[address] [address] 16 Apr, 2017 Encounter to establish care Z76.89 ; Essential hypertension I10 ; Screening cholesterol level Z13.220 and Screening for diabetes mellitus Z13.[address] [address] Apr, Encounter to establish care Z76.89 ; Essential hypertension I10 ; Screening cholesterol level Z13.220 ; Screening for diabetes mellitus Z13.1 ; History of atrial fibrillation Z86.79 ; Migraine without aura and without status migrainosus, not intractable G43.009 ; Body mass index (BMI) of 50-59.9 in adult Z68.43 and Morbid (severe) obesity due to excess calories E66.01 [facility] [place] [id number] [place] [phone] Mar, Essential hypertension I10 IMMUNIZATIONS Vaccine Route Administration Date Status DEPO PROVERA (150 MG/ML) IM Intramuscular October 07, 2017 Administered SOCIAL HISTORY Never Assessed REASON FOR VISIT HTN- faith estrada, wants to review test results from - ultrasound , pelvic exam results PLAN OF CARE Activity Details Follow Up 3 Months, prn Reason:CHM/HTN VITAL SIGNS Height 66 in 2017-10-07 Weight 322.4 lbs 2017-10-07 Temperature 97.7 degrees Fahrenheit 2017-10-07 Heart Rate 87 bpm 2017-10-07 Respiratory Rate 20 2017-10-07 BMI 52.03 kg/m2 2017-10-07 Blood pressure systolic 142 mmHg 2017-10-07 Blood pressure diastolic 90 mmHg 2017-10-07 MEDICATIONS Medication Instructions Dosage Frequency Start Date End Date Duration Status Norvasc 10 mg Orally Once a day 1 tablet 24h Mar, 90 days Active MetFORMIN HCl ER 500 mg Orally Once a day 1 tablet with evening meal 24h Apr, 90 days Active Ferrous Sulfate 325 (65 Fe) MG Orally Once a day 1 tablet 24h May, 30 day(s) Active Lisinopril 5 mg Orally Once a day 1 tablet 24h September, 90 days Active RESULTS No Results PROCEDURES Procedure Date Ordered Result Body Site URINE TEST October 07, 2017 [facility] October 07, 2017 THER/PROPH/DIAG INJ, SC/IM October 07, 2017 DEPO PROVERA (150 MG/ML) October 07, 2017 VENIPUNCT, ROUTINE* October 07, 2017 INSTRUCTIONS MEDICATIONS ADMINISTERED No Known Medications MEDICAL (GENERAL) HISTORY Type Description Date Medical History HTN Medical History A Fib Medical History Migraines without auras Surgical History Gallbladder 2009 Hospitalization History Migraines
--- OUTSIDE RECORDS SUMMARY | 2018-04-29 15:23 | XMS REPORT ---
Author Author JACQUELIN CABRERA Organization [facility] Address [address] [place] [address] Care Team Providers Care Molecular Biologist Name Role Phone JACQUELIN CABRERA Unavailable PROBLEMS Type Condition ICD9-CM Code RHV50-PX Code Onset Dates Condition Status SNOMED Code Problem Mixed hyperlipidemia E78.2 Active 357814648 Problem Morbid (severe) obesity due to excess calories E66.01 Active 593602750 Problem Essential hypertension I10 Active 21471952 Problem Iron deficiency anemia secondary to inadequate dietary iron intake D50.8 Active 749850322 Problem Subclinical hypothyroidism E03.9 Active 37495021 Problem Tobacco abuse counseling Z71.6 Active 371084117 Problem Tobacco abuse Z72.0 Active 994826063 Problem Body mass index (BMI) of 50-59.9 in adult Z68.43 Active 527200563 Problem Migraine without aura and without status migrainosus, not intractable G43.009 Active 193003474 Problem Hyperinsulinemia E16.1 Active 24933352 Problem Dysfunctional uterine bleeding N93.8 Active 63737337 ALLERGIES No Information ENCOUNTERS Encounter Location Date Diagnosis [facility] [id number] [place] [address] September, Abnormal TSH R94.6 [facility] [id number] [place] [address] September, Essential hypertension I10 ; Migraine without aura and without status migrainosus, not intractable G43.009 ; Morbid (severe) obesity due to excess calories E66.01 ; Iron deficiency anemia secondary to inadequate dietary iron intake D50.8 ; Hyperinsulinemia E16.1 ; Dysfunctional uterine bleeding N93.8 ; Subclinical hypothyroidism E03.9 ; Encounter for Depo-Provera contraception Z30.42 ; Tobacco abuse counseling Z71.6 [address] Tobacco [address]72[address]0 [facility] [id number] [place] [address] Jun, Encounter for immunization Z23 [place] [id number] [place] [address] May, Iron deficiency anemia secondary to inadequate dietary iron intake D50.8 and Subclinical hypothyroidism E03.[address] [address] May, Abnormal CBC measurement R79.89 and Abnormal TSH R94.6 [place] [address] [address] Apr, [address] [address] Apr, Abnormal CBC measurement R79.89 and Abnormal TSH R94.[address] [address] Apr, Well woman exam Z01.419 and Dysfunctional uterine bleeding N93.8 [place] [id number] [place] [address] 16 Apr, 2017 Encounter to establish care Z76.89 ; Essential hypertension I10 ; Screening cholesterol level Z13.220 and Screening for diabetes mellitus Z13.1 [place] [id number] [place] [address] 09 Apr, 2017 Encounter to establish care Z76.89 ; Essential hypertension I10 ; Screening cholesterol level Z13.220 ; Screening for diabetes mellitus Z13.1 ; History of atrial fibrillation Z86.79 ; Migraine without aura and without status migrainosus, not intractable G43.009 ; Body mass index (BMI) of 50-59.9 in adult Z68.43 and Morbid (severe) obesity due to excess calories E66.01 [place] [facility] [address] [place] [id number] [place] [address] Mar, Essential hypertension I10 IMMUNIZATIONS No Known Immunizations SOCIAL HISTORY Never Assessed REASON FOR VISIT med/lab order PLAN OF CARE VITAL SIGNS MEDICATIONS Medication Instructions Dosage Frequency Start Date End Date Duration Status Ferrous Sulfate 325 (65 Fe) MG Orally Once a day 1 tablet 24h May, 30 day(s) Active RESULTS No Results PROCEDURES No Known procedures INSTRUCTIONS MEDICATIONS ADMINISTERED No Known Medications MEDICAL (GENERAL) HISTORY Type Description Date Medical History HTN Medical History A Fib Medical History Migraines without auras Surgical History Gallbladder 2009 Hospitalization History Migraines
--- OUTSIDE RECORDS SUMMARY | 2018-04-29 15:23 | XMS REPORT ---
Author Author JACQUELIN CABRERA Organization [facility] Address [address] [place] [address] Care Team Providers Care Life Educator Name Role Phone JACQUELIN CABRERA Unavailable PROBLEMS Type Condition ICD9-CM Code BOV85-VA Code Onset Dates Condition Status SNOMED Code Problem Mixed hyperlipidemia E78.2 Active 867680405 Problem Morbid (severe) obesity due to excess calories E66.01 Active 296799542 Problem Essential hypertension I10 Active 60701262 Problem Iron deficiency anemia secondary to inadequate dietary iron intake D50.8 Active 729503970 Problem Subclinical hypothyroidism E03.9 Active 25751807 Problem Tobacco abuse counseling Z71.6 Active 564039713 Problem Tobacco abuse Z72.0 Active 630842376 Problem Body mass index (BMI) of 50-59.9 in adult Z68.43 Active 396983054 Problem Migraine without aura and without status migrainosus, not intractable G43.009 Active 228767969 Problem Hyperinsulinemia E16.1 Active 64005452 Problem Dysfunctional uterine bleeding N93.8 Active 38269132 ALLERGIES No Information ENCOUNTERS Encounter Location Date Diagnosis [facility] [id number] [place] [address] September, Abnormal TSH R94.6 [facility] [id number] [place] [address]- [address] September, Essential hypertension I10 ; Migraine without aura and without status migrainosus, not intractable G43.009 ; Morbid (severe) obesity due to excess calories E66.01 ; Iron deficiency anemia secondary to inadequate dietary iron intake D50.8 ; Hyperinsulinemia E16.1 ; Dysfunctional uterine bleeding N93.8 ; Subclinical hypothyroidism E03.9 ; Encounter for Depo-Provera contraception Z30.42 ; Tobacco abuse counseling Z71.6 and Tobacco abuse Z72.0 [facility] [id number] [place] [address] Jun, Encounter for immunization Z23 [place] [address] [id number] [place] [address]- [address] 13 May, 2017 Iron deficiency anemia secondary to inadequate dietary iron intake D50.8 and Subclinical hypothyroidism E03.9 [place] [address] [address] May, Abnormal CBC measurement R79.89 and Abnormal TSH R94.6 [place] [address] [address] Apr, [address] [address] Apr, Abnormal CBC measurement R79.89 and Abnormal TSH R94.6 [place] [address] [address] [id number] [place] [address]- [address] Apr, Well woman exam Z01.419 and Dysfunctional uterine bleeding N93.8 [place] [id number] [place] [address]- [address] 16 Apr, 2017 Encounter to establish care Z76.89 ; Essential hypertension I10 ; Screening cholesterol level Z13.220 and Screening for diabetes mellitus Z13.1 [place] [id number] [place] [address] 09 Apr, 2017 Encounter to establish care Z76.89 ; Essential hypertension I10 ; Screening cholesterol level Z13.220 ; Screening for diabetes mellitus Z13.1 ; History of atrial fibrillation Z86.79 ; Migraine without aura and without status migrainosus, not intractable G43.009 ; Body mass index (BMI) of 50-59.9 in adult Z68.43 and Morbid (severe) obesity due to excess calories E66.01 [facility] [address] [place] [id number] [place] [phone] Mar, Essential hypertension I10 IMMUNIZATIONS No Known Immunizations SOCIAL HISTORY Never Assessed [facility] FOR VISIT [facility] VITAL SIGNS MEDICATIONS Unknown Medications RESULTS No Results PROCEDURES Procedure Date Ordered Result Body Site [facility] May 05, 2017 JORDYN HICKS* May 05, 2017 INSTRUCTIONS MEDICATIONS ADMINISTERED No Known Medications MEDICAL (GENERAL) HISTORY Type Description Date Medical History HTN Medical History A Fib Medical History Migraines without auras Surgical History Gallbladder 2009 Hospitalization History Migraines
--- OUTSIDE RECORDS SUMMARY | 2018-04-29 15:23 | XMS REPORT ---
Author Author SEBASTIAN MARCOS [facility] Address [address] [place] [address] Care Team Providers Care Hay Sorter Name Role Phone SEBASTIAN MARCOS Unavailable PROBLEMS Type Condition ICD9-CM Code ZGY75-IC Code Onset Dates Condition Status SNOMED Code Problem Mixed hyperlipidemia E78.2 Active 846653251 Problem Morbid (severe) obesity due to excess calories E66.01 Active 648765621 Problem Essential hypertension I10 Active 00264822 Problem Iron deficiency anemia secondary to inadequate dietary iron intake D50.8 Active 258851358 Problem Subclinical hypothyroidism E03.9 Active 47369269 Problem Tobacco abuse counseling Z71.6 Active 936020813 Problem Tobacco abuse Z72.0 Active 633589421 Problem Body mass index (BMI) of 50-59.9 in adult Z68.43 Active 710743691 Problem Migraine without aura and without status migrainosus, not intractable G43.009 Active 495560266 Problem Hyperinsulinemia E16.1 Active 69880375 Problem Dysfunctional uterine bleeding N93.8 Active 82274015 ALLERGIES No Information ENCOUNTERS Encounter Location Date Diagnosis [place] [address] [place] [address] September, Abnormal TSH R94.6 [facility] [address] [place] [address] September, Essential hypertension I10 ; Migraine without aura and without status migrainosus, not intractable G43.009 ; Morbid (severe) obesity due to excess calories E66.01 ; Iron deficiency anemia secondary to inadequate dietary iron intake D50.8 ; Hyperinsulinemia E16.1 ; Dysfunctional uterine bleeding N93.8 ; Subclinical hypothyroidism E03.9 ; Encounter for Depo-Provera contraception Z30.42 ; Tobacco abuse counseling Z71.6 and Tobacco abuse Z72.0 [facility] [id number] [place] [address]- [address] Jun, Encounter for immunization Z23 [address] [address] May, Iron deficiency anemia secondary to inadequate dietary iron intake D50.8 and Subclinical hypothyroidism E03.[address] [address] May, Abnormal CBC measurement R79.89 and Abnormal TSH R94.[address] [address] Apr, [address] [address] Apr, Abnormal CBC measurement R79.89 and Abnormal TSH R94.[address] [address] Apr, Well woman exam Z01.419 and Dysfunctional uterine bleeding N93.[address] [address] 16 Apr, 2017 Encounter to establish care Z76.89 ; Essential hypertension I10 ; Screening cholesterol level Z13.220 and Screening for diabetes mellitus Z13.[address] [address] 09 Apr, 2017 Encounter to establish care Z76.89 ; Essential hypertension I10 ; Screening cholesterol level Z13.220 ; Screening for diabetes mellitus Z13.1 ; History of atrial fibrillation Z86.79 ; Migraine without aura and without status migrainosus, not intractable G43.009 ; Body mass index (BMI) of 50-59.9 in adult Z68.43 and Morbid (severe) obesity due to excess calories E66.01 [facility] [place] [id number] [place] [address] Mar, Essential hypertension I10 IMMUNIZATIONS No Known Immunizations SOCIAL HISTORY Never Assessed 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
[2018-04-29] MEDS ORDERED: PROCHLORPERAZINE 10 MG/2ML INJ (COMPAZINE) IM ONE (16:15)
[2018-04-29] MEDS ORDERED: ORPHENADRINE 60 MG/2 ML (NORFLEX) AMP IM ONE (16:15)
[2018-04-29] MEDS ORDERED: KETOROLAC 60 MG/2 ML VIAL IM ONE (16:15)
--- NOTE | 2018-04-29 16:15 | ED Headache ---
General Stated Complaint: MIGRANE Source: patient Exam Limitations: no limitations History of Present Illness Date Seen by Provider: Apr 29, 2018 Time Seen by Provider: 16:12 Initial Comments To ER with reports of a global headache since 3 AM this morning. She has associated photophobia and nausea and vomiting. She has a history of migraines and this is similar in presentation and onset to her other headaches. She was formerly on medication at home to control these but she states "nothing ever works so I just gave up". Timing/Duration: constant Severity/Quality: constant Location: global Prior Headaches/Recent Trauma: occasional headaches Modifying Factors: worse with exposure to light Associated Symptoms: nausea/vomiting Allergies and Home Medications Allergies Coded Allergies: No Known Drug Allergies (Unverified , 07/29/16) Home Medications Amlodipine Besylate 10 Mg Tablet, 10 MG PO DAILY Prescribed by: WANDY ALVARADO on 08/19/16 2254 Ondansetron 8 Mg Tab.rapdis, 8 MG PO Q6H PRN for NAUSEA/VOMITING-1ST LINE Prescribed by: MAXI REARDON on 07/28/17 1535 Zonisamide 100 Mg Capsule, 100 MG PO BID, (Reported) Patient Home Medication List Home Medication List Reviewed: Yes Review of Systems Review of Systems Constitutional: see HPI Eyes: See HPI, Photophobia Ears, Nose, Mouth, Throat: no symptoms reported Respiratory: no symptoms reported Cardiovascular: no symptoms reported Gastrointestinal: nausea, vomiting Genitourinary: no symptoms reported Musculoskeletal: no symptoms reported Skin: no symptoms reported Psychiatric/Neurological: No Symptoms Reported Past Fqganju-Vtysib-Dmitdm Hx Patient Social History Type Used: Cigarettes Recent Foreign Travel: No Contact w/Someone Who Travel: No Recent Hopitalizations: No Past Medical History Surgeries: Yes Gallbladder Respiratory: No Cardiac: Yes Atrial Fibrillation, Hypertension Neurological: Yes Headaches /Migraines Reproductive Disorders: Yes (IRREGULAR PERIODS) Female Reproductive Disorders: Menstrual Problems Sexually Transmitted Disease: No Genitourinary: No Gastrointestinal: Yes (S/P SHARMILA) Gall Bladder Disease Musculoskeletal: No Endocrine: Yes Diabetes, Non-Insulin dep HEENT: No Cancer: No Psychosocial: No Integumentary: No Blood Disorders: No Family Medical History No Pertinent Family Hx Physical Exam Vital Signs Capillary Refill : Height, Weight, BMI Height: 5'6.00" Weight: 324lbs. oz. 146.985855zg; BMI Method:Stated General Appearance: WD/WN, no apparent distress HEENT: PERRL/EOMI, normal ENT inspection, TMs normal Neck: non-tender, full range of motion Respiratory: no respiratory distress, no accessory muscle use Gastrointestinal: normal bowel sounds, non tender Extremities: normal range of motion, non-tender Psychiatric: alert, oriented x 3 Crainal Nerves: normal hearing, normal speech, PERRL Skin: normal color, warm/dry Progress/Results/Core Measures Results/Orders My Orders Orders - ARON LOVE APRN Ketorolac Injection (Toradol Injection) (04/29/18 16:15) Orphenadrine Injection (Norflex Injectio (04/29/18 16:15) Prochlorperazine Injection (Compazine In (04/29/18 16:15) Departure Impression Primary Impression: Headache Qualified Codes: R51 - Headache Disposition: 01 HOME, SELF-CARE Condition: Improved Departure-Patient Inst. Decision time for Depature: 16:14 Referrals: [facility] (PCP) Primary Care Physician JACQUELIN CABRERA APRN (Family) Primary Care Physician Patient Instructions: Headache, Adult Add. Discharge Instructions: 1. Medication as directed 2. Follow-up with your primary care provider ARON LOVE APRN Apr 29, 2018 16:15
[2018-04-29] MEDS ORDERED: NS IV 1000 ML 1,000 ML IV SCH (17:00)
[2018-04-29] MEDS ORDERED: meTOprolol 5 MG/5 ML (LOPRESSOR) VIAL IV ONE (17:00)
[2018-04-29] MEDS ORDERED: DEXAMETHASONE 10 MG/ML (DECADRON) 1 ML VIAL IV ONE (17:00)
[2018-04-29 18:07] VITALS: BP 174/113
== END 2018-04-29 18:07 | disposition home or self-care (01) ==
LOC: EDUNIT# 15:18 → ER 15:19
DX: R51 Headache (principal); I48.91 Unspecified atrial fibrillation; E11.9 Type 2 diabetes mellitus without complications; I10 Essential (primary) hypertension; Z90.49 Acquired absence of other specified parts of digestive tract; Z87.448 Personal history of other diseases of urinary system
CPT/HCPCS: 96361; 96372; 96374; 96375

== ENCOUNTER 2018-07-16 20:53 | Emergency (ER) | payer SELFPAY ==
[~2018-07-16] VITALS: Ht 167.6 cm; Wt 149.7 kg
[~2018-07-16 20:53] MED LIST changes: -AMLO10TA6 PO; +AMLO10TA7 PO
[2018-07-16] MEDS ORDERED: KETOROLAC 60 MG/2 ML VIAL IM ONE (21:30)
[2018-07-16] MEDS ORDERED: ORPHENADRINE 60 MG/2 ML (NORFLEX) AMP IM ONE (21:30)
--- NOTE | 2018-07-16 21:30 | ED Upper Extremity ---
General Chief Complaint: Upper Extremity Stated Complaint: L SHOULDER/ARM PAIN Nursing Triage Note: PT PRESENTS TO ER WITH COMLPAINT OF LEFT SHOULDER PAIN. PT STATES STARTED 4 DAYS AGO. STATES SHE WENT TO PCP AND THEY PRESCRIBED HER PREDNISONE. PT STATES SHE HAS PAIN THAT SHOOTS UP AND DOWN HER ARM. Nursing Sepsis Screen: No Definite Risk Source: patient Exam Limitations: no limitations History of Present Illness Date Seen by Provider: Jul 16, 2018 Time Seen by Provider: 21:28 Initial Comments To ER with left shoulder pain. This began about 4 days ago when she awakened during the middle of the night. She denies any known injury. The pain starts between the shoulder blade and the spine and radiates all the way down the hand terminating at the wrist. She saw [facility] 2 days ago and was started on prednisone, has been taking this but the pain persists. She has some associated pain around the scapula and radiates down the hand. Onset: just prior to arrival Severity: moderate Pain/Injury Location: left shoulder, left wrist Method of Injury: unknown Modifying Factors: Worse With Movement Allergies and Home Medications Allergies Coded Allergies: No Known Drug Allergies (Unverified , 07/29/16) Home Medications Amlodipine Besylate 10 Mg Tablet, 10 MG PO DAILY Prescribed by: WANDY ALVARADO on 08/19/16 2254 Ondansetron 8 Mg Tab.rapdis, 8 MG PO Q6H PRN for NAUSEA/VOMITING-1ST LINE Prescribed by: MAXI RERADON on 07/28/17 1535 Zonisamide 100 Mg Capsule, 100 MG PO BID, (Reported) Patient Home Medication List Home Medication List Reviewed: Yes Review of Systems Constitutional: see HPI; No chills, No fever EENTM: see HPI Respiratory: no symptoms reported Cardiovascular: no symptoms reported Genitourinary: no symptoms reported Musculoskeletal: see HPI Skin: no symptoms reported Psychiatric/Neurological: No Symptoms Reported Past Lmaiejq-Kpudlm-Nbxlnj Hx Patient Social History Alcohol Use: Denies Use Recreational Drug Use: No Smoking Status: Current Everyday Smoker Type Used: Cigarettes Recent Foreign Travel: No Contact w/Someone Who Travel: No Recent Infectious Disease Expo: No Recent Hopitalizations: No Immunizations Up To Date Tetanus Booster (TDap): Unknown Past Medical History Surgeries: Yes Gallbladder Respiratory: No Cardiac: Yes Atrial Fibrillation, Hypertension Neurological: Yes Headaches /Migraines Reproductive Disorders: Yes (IRREGULAR PERIODS) Female Reproductive Disorders: Menstrual Problems Sexually Transmitted Disease: No Genitourinary: No Gastrointestinal: Yes (S/P SHARMILA) Gall Bladder Disease Musculoskeletal: No Endocrine: Yes Diabetes, Non-Insulin dep HEENT: No Cancer: No Psychosocial: No Integumentary: No Blood Disorders: No Family Medical History No Pertinent Family Hx Physical Exam Vital Signs Vital Signs - First Documented 07/16/18 21:06 Pulse 96 Resp 17 B/P (MAP) 187/100 (129) Pulse Ox 96 O2 Delivery Room Air Capillary Refill : Less Than 3 Seconds Height, Weight, BMI Height: 5'6.00" Weight: 330lbs. oz. 149.375789se; BMI Method:Stated General Appearance: WD/WN, no apparent distress HEENT: PERRL/EOMI, normal ENT inspection Neck: non-tender, full range of motion Respiratory: no respiratory distress, no accessory muscle use Gastrointestinal: normal bowel sounds, non tender Shoulder: normal inspection, pain (Well patient scapular tenderness to palpation) Elbow/Forearm: normal inspection, non-tender, Left Neurologic/Tendon: normal sensation, normal motor functions Neurologic/Psychiatric: alert, normal mood/affect, oriented x 3 Skin: normal color, warm/dry Progress/Results/Core Measures Results/Orders My Orders Orders - ARON LOVE APRN Ketorolac Injection (Toradol Injection) (07/16/18 21:30) Orphenadrine Injection (Norflex Injectio (07/16/18 21:30) Shoulder, Left, 3 Views (07/16/18 21:25) Vital Signs/I&O 07/16/18 21:06 Pulse 96 Resp 17 B/P (MAP) 187/100 (129) Pulse Ox 96 O2 Delivery Room Air Blood Pressure Mean: 129 Departure Impression Primary Impression: Left shoulder pain Qualified Codes: M25.512 - Pain in left shoulder Disposition: 01 HOME, SELF-CARE Condition: Stable Departure-Patient Inst. Decision time for Depature: 21:32 Referrals: [facility] (PCP/Family) Primary Care Physician Patient Instructions: Shoulder Pain (DC) Add. Discharge Instructions: 1. Pain medication as directed 2. Follow-up with your doctor next week 3. All discharge instructions reviewed with patient and/or family. Voiced understanding. ARON LOVE APRN Jul 16, 2018 21:29
--- NOTE | 2018-07-16 22:03 | Diagnostic Imaging Report ---
EXAMINATION: Left shoulder radiographs, 3 views. COMPARISON: None. HISTORY: 32-year-old female, left shoulder pain. FINDINGS: The acromioclavicular joint is normally aligned. There are no prominent acromioclavicular degenerative changes. The humeral head is normally positioned relative to the glenoid. There is no identified acute fracture. There is no radiopaque foreign body. IMPRESSION: Unremarkable left shoulder radiographs. Dictated by: Dictated on workstation # [id number]
[2018-07-16] MEDS ORDERED: RX-HYDROCODONE/APAP 5/325 MG #4 TAB PK PO PRN (22:15)
[2018-07-16] MEDS ORDERED: RX-OXYCODONE/APAP 5-325 MG #4 TAB PK PO PRN (22:30)
[2018-07-16 22:42] VITALS: BP 154/92
== END 2018-07-16 22:42 | disposition home or self-care (01) ==
LOC: EDUNIT# 20:53 → ER 20:54
DX: M25.512 Pain in left shoulder (principal); I48.91 Unspecified atrial fibrillation; I10 Essential (primary) hypertension; E11.9 Type 2 diabetes mellitus without complications; G43.909 Migraine, unspecified, not intractable, without status migrainosus; F17.210 Nicotine dependence, cigarettes, uncomplicated; Z90.49 Acquired absence of other specified parts of digestive tract
CPT/HCPCS: 73030

== ENCOUNTER 2018-07-18 17:35 | Emergency (ER) | payer SELFPAY ==
[~2018-07-18] VITALS: Ht 167.6 cm; Wt 149.7 kg
[2018-07-18] MEDS ORDERED: NITROGLYCERIN 2% OINT 1 GM UNIT DOSE PACKET TOP ONE (19:30)
[2018-07-18] MEDS ORDERED: ASPIRIN 81 MG CHEW (CHILDREN'S ASA) PO ONE (19:30)
[2018-07-18] MEDS ORDERED: KETOROLAC 30 MG/ML VIAL ONE (19:35)
[2018-07-18 19:44] LABS: BASOPHILS # (AUTO) 0.1 10^3/uL (0.0-0.1); BASOPHILS % (AUTO) 0 % (0-10); EOSINOPHILS # (AUTO) 0.1 10^3/uL (0.0-0.3); EOSINOPHILS % (AUTO) 0 % (0-10); HEMATOCRIT 42 % (35-52); HEMOGLOBIN 14.2 G/DL (11.5-16.0); LYMPHOCYTES # (AUTO) 3.3 X 10^3 (1.0-4.0); LYMPHOCYTES % (AUTO) 28 % (12-44); MEAN CORPUSCULAR HEMOGLOBIN 27 PG (25-34); MEAN CORPUSCULAR HGB CONC 34 G/DL (32-36); MEAN CORPUSCULAR VOLUME 80 FL (80-99); MEAN PLATELET VOLUME 9.8 FL (7.4-10.4); MONOCYTES # (AUTO) 0.8 X 10^3 (0.0-1.0); MONOCYTES % (AUTO) 7 % (0-12); NEUTROPHILS # (AUTO) 7.5 X 10^3 (1.8-7.8); NEUTROPHILS % (AUTO) 65 % (42-75); PLATELET COUNT 396 10^3/uL (130-400); RED CELL DISTRIBUTION WIDTH 15.6 % (10.0-14.5); WHITE BLOOD COUNT 11.7 10^3/uL (4.3-11.0)
[2018-07-18] MEDS: NITROGLYCERIN 0.4 MG SL TABS BTL 25'S SL PRN ×2 (19:45→19:50)
[2018-07-18] MEDS ORDERED: KETOROLAC 30 MG/ML VIAL IVP ONE (19:45)
--- NOTE | 2018-07-18 19:54 | Diagnostic Imaging Report ---
CHEST 1 VIEW, AP/PA ONLY Indication: Left shoulder/chest pain. Comparison: 08/19/2016 Findings: No focal airspace disease in the visualized lungs. Please note that the posterior lower lobes are poorly evaluated by portable radiography. No pleural effusion or pneumothorax. Normal cardiomediastinal silhouette. Impression: No acute cardiopulmonary process by portable radiography. Dictated by: Dictated on workstation # [id number]
[2018-07-18 20:00] LABS: PROTHROMBIN TIME PATIENT 13.2 SEC (12.2-14.7)
[2018-07-18 20:06] LABS: ALANINE AMINOTRANSFERASE 27 U/L (0-55); ALBUMIN 4.4 GM/DL (3.2-4.5); ALKALINE PHOSPHATASE 100 U/L (40-136); AMYLASE 39 U/L (25-125); BILIRUBIN,TOTAL 0.3 MG/DL (0.1-1.0); BUN/CREATININE RATIO 14; CALCIUM 9.6 MG/DL (8.5-10.1); CARBON DIOXIDE 25 MMOL/L (21-32); CHLORIDE 103 MMOL/L (98-107); CREATINE KINASE 134 U/L (29-168); CREATININE SERUM 0.76 MG/DL (0.60-1.30); GFR ESTIMATED > 60; GLUCOSE 85 MG/DL (70-105); LIPASE 13 U/L (8-78); MAGNESIUM 2.4 MG/DL (1.8-2.4); POTASSIUM 4.2 MMOL/L (3.6-5.0); SODIUM 140 MMOL/L (135-145); TOTAL PROTEIN 7.7 GM/DL (6.4-8.2)
--- NOTE | 2018-07-18 20:08 | ED General ---
General Chief Complaint: Upper Extremity Stated Complaint: L SHOULDER PAIN Nursing Triage Note: COMPLAINT OF LEFT SHOULDER PAIN. STATES NERVE PAIN. FINGER TIPS NUMB. Nursing Sepsis Screen: No Definite Risk Source of Information: Patient History of Present Illness Date Seen by Provider: Jul 18, 2018 Time Seen by Provider: 19:30 Initial Comments PT ARRIVES VIA POV FROM HOME C/O PAIN TO LEFT SHOULDER, LEFT UPPER BACK, LEFT LATERAL NECK AND SCAPULAR AREA FOR 5 DAYS--STATES PAIN WOKE HER UP IN THE MIDDLE OF THE NIGHT, AND HAS BEEN UNABLE TO SLEEP FOR 2 NIGHTS DUE TO SEVERE PAIN PAIN RADIATES DOWN LEFT ARM HAS TINGLING IN LEFT FINGERTIPS PAIN IS GETTING MUCH WORSE RATES PAIN 10/10 AT WORST, RATES 9/10 NOW NO CHEST PAIN NO SHORTNESS OF BREATH NO PALPITATIONS NO SWELLING IN LEGS/ FEET OR PAIN IN CALVES NO NAUSEA/VOMITING PAIN IMPROVED WITH SITTING UP, WORSE WITH LAYING DOWN,AND WITH ANY MOVEMENT OF LEFT ARM PT DID HAVE URI SYMPTOMS AND VOMITING 2 WEEKS AGO--NO TREATMENT SEEN AT [facility] ON 07/14 FOR THIS PROBLEM--GIVEN RX FOR PREDNISONE SEEN HERE 07/16/18 AND HAD XRAYS DONE--NORMAL. DX "PINCHED NERVE" PCP: [facility]--HAS AN APPOINTMENT 07/23/18 FOR THIS PROBLEM Allergies and Home Medications Allergies Coded Allergies: No Known Drug Allergies (Unverified , 07/29/16) Home Medications Amlodipine Besylate 10 Mg Tablet, 10 MG PO DAILY Prescribed by: WANDY ALVARADO on 08/19/162253 Hydralazine HCl 10 Mg Tablet, 10 MG PO TID Prescribed by: SAMY EVANS on 07/18/182206 Meloxicam 15 Mg Tablet, 15 MG PO DAILY Prescribed by: SAMY EVANS on 07/18/182206 Nitrofurantoin Monohyd/M-Cryst 100 Mg Capsule, 100 MG PO BID Prescribed by: SAYM EVANS on 07/18/182252 Ondansetron 8 Mg Tab.rapdis, 8 MG PO Q6H PRN for NAUSEA/VOMITING-1ST LINE Prescribed by: MAXI REARDON on 07/28/17 1535 Tizanidine HCl 4 Mg Tablet, 4 MG PO TID Prescribed by: SAMY EVANS on 07/18/182206 Zonisamide 100 Mg Capsule, 100 MG PO BID, (Reported) Patient Home Medication List Home Medication List Reviewed: Yes Review of Systems Review of Systems Constitutional: no symptoms reported EENTM: no symptoms reported Respiratory: no symptoms reported Cardiovascular: no symptoms reported Gastrointestinal: no symptoms reported Genitourinary: no symptoms reported Musculoskeletal: see HPI Skin: no symptoms reported Psychiatric/Neurological: See HPI Hematologic/Lymphatic: No Symptoms Reported Immunological/Allergic: no symptoms reported Past Pqklvlv-Zazwhr-Pzltcv Hx Patient Social History Alcohol Use: Denies Use Recreational Drug Use: No (THC TEEN) Smoking Status: Current Everyday Smoker (1 PPD) Type Used: Cigarettes Recent Foreign Travel: No Contact w/Someone Who Travel: No Recent Infectious Disease Expo: No Recent Hopitalizations: No Immunizations Up To Date Tetanus Booster (TDap): Unknown Past Medical History Surgeries: Yes Gallbladder Respiratory: No Cardiac: Yes (HAD BRIEF EPISODE OF ATRIAL FIB WHILE HOSPITALIZED FOR HEADACHES- -WAS ON BLOOD THINNERS FOR SHORT PERIOD OF TIME, [facility] [place] MEDICATION > 3 YEARS AGO. LONG HISTORY OF UNCONTROLLED HTN) Atrial Fibrillation, Hypertension Neurological: Yes Headaches /Migraines Reproductive Disorders: Yes (IRREGULAR PERIODS) Female Reproductive Disorders: Menstrual Problems Sexually Transmitted Disease: No Genitourinary: No Gastrointestinal: Yes (S/P SHARMILA) Gall Bladder Disease Musculoskeletal: No Endocrine: Yes (OBESE) Diabetes, Non-Insulin dep HEENT: No Cancer: No Psychosocial: No Integumentary: No Blood Disorders: No Family Medical History No Pertinent Family Hx Physical Exam Vital Signs Vital Signs - First Documented 07/18/18 18:18 Temp 98.3 Pulse 86 Resp 20 B/P (MAP) 191/120 (143) Pulse Ox 94 O2 Delivery Room Air Capillary Refill : Less Than 3 Seconds Height, Weight, BMI Height: 5'6.00" Weight: 330lbs. oz. 149.300005ym; BMI Method:Stated General Appearance: No Apparent Distress, Obese HEENT: PERRL/EOMI Neck: Full Range of Motion, Normal Inspection, Supple, Other (TENDERNESS TO LEFT LATERAL CERVICAL MUSCLES) Respiratory: Chest Non Tender, Normal Breath Sounds, No Accessory Muscle Use, No Respiratory Distress Cardiovascular: Regular Rate, Rhythm, No Edema, No JVD, No Murmur, Normal Peripheral Pulses Gastrointestinal: Normal Bowel Sounds, No Organomegaly, No Pulsatile Mass, Non Tender, Soft Back: No CVA Tenderness, Other (PAIN IS VERY REPRODUCIBLE TO PALPATION, ESPECIALLY OF LEFT TRAPEZIUS MUSCLE) Extremity: Normal Capillary Refill, Normal Inspection, Normal Range of Motion ( BUT PAIN TO LEFT TRAPEZIUS AREA WITH MOVEMENT OF LEFT SHOULDER), Non Tender, No Calf Tenderness, No Pedal Edema Neurologic/Psychiatric: Alert, Oriented x3, No Motor/Sensory Deficits, Normal Mood/Affect, 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 Norm as Tested Skin: Normal Color, Warm/Dry Progress/Results/Core Measures Suspected Sepsis Recent Fever Within 48 Hours: No Infection Criteria Present: None New/Unexplained Altered Menta: No Sepsis Screen: No Definite Risk SIRS Temperature:98.3 Pulse: 86 Respiratory Rate: 20 Laboratory Tests 07/18/18 19:30: White Blood Count 11.7H Blood Pressure 191 /120 Mean: 143 Laboratory Tests 07/18/18 19:30: Creatinine 0.76, INR Comment 1.0, Platelet Count 396, Total Bilirubin 0.3 Results/Orders Lab Results Laboratory Tests Test 07/18/18 19:30 07/18/18 22:20 Range/Units White Blood Count 11.7 H 4.3-11.0 10^3/uL Red Blood Count 5.25 4.35-5.85 10^6/uL Hemoglobin 14.2 11.5-16.0 G/DL Hematocrit 42 35-52 % Mean Corpuscular Volume 80 80-99 FL Mean Corpuscular Hemoglobin 27 25-34 PG Mean Corpuscular Hemoglobin Concent 34 32-36 G/DL Red Cell Distribution Width 15.6 H 10.0-14.5 % Platelet Count 396 130-400 10^3/uL Mean Platelet Volume 9.8 7.4-10.4 FL Neutrophils (%) (Auto) 65 42-75 % Lymphocytes (%) (Auto) 28 12-44 % Monocytes (%) (Auto) 7 0-12 % Eosinophils (%) (Auto) 0 0-10 % Basophils (%) (Auto) 0 0-10 % Neutrophils # (Auto) 7.5 1.8-7.8 X 10^3 Lymphocytes # (Auto) 3.3 1.0-4.0 X 10^3 Monocytes # (Auto) 0.8 0.0-1.0 X 10^3 Eosinophils # (Auto) 0.1 0.0-0.3 10^3/uL Basophils # (Auto) 0.1 0.0-0.1 10^3/uL Prothrombin Time 13.2 12.2-14.7 SEC INR Comment 1.0 0.8-1.4 Activated Partial Thromboplast Time 32 24-35 SEC Sodium Level 140 135-145 MMOL/L Potassium Level 4.2 3.6-5.0 MMOL/L Chloride Level 103 98-107 MMOL/L Carbon Dioxide Level 25 21-32 MMOL/L Anion Gap 12 5-14 MMOL/L Blood Urea Nitrogen 11 7-18 MG/DL Creatinine 0.76 0.60-1.30 MG/DL Estimat Glomerular Filtration Rate > 60 BUN/Creatinine Ratio 14 Glucose Level 85 70-105 MG/DL Calcium Level 9.6 8.5-10.1 MG/DL Corrected Calcium 9.3 8.5-10.1 MG/DL Magnesium Level 2.4 1.8-2.4 MG/DL Total Bilirubin 0.3 0.1-1.0 MG/DL Aspartate Amino Transf (AST/SGOT) 20 5-34 U/L Alanine Aminotransferase (ALT/SGPT) 27 0-55 U/L Alkaline Phosphatase 100 40-136 U/L Total Creatine Kinase 134 29-168 U/L Creatine Kinase MB 1.2 <6.6 NG/ML Myoglobin 24.8 10.0-92.0 NG/ML Troponin I < 0.028 <0.028 NG/ML B-Type Natriuretic Peptide 11.3 <100.0 PG/ML Total Protein 7.7 6.4-8.2 GM/DL Albumin 4.4 3.2-4.5 GM/DL Amylase Level 39 25-125 U/L Lipase 13 8-78 U/L Serum Test, Qualitative NEGATIVE NEGATIVE Urine Color YELLOW Urine Clarity SL CLOUDY Urine pH 7 5-9 Urine Specific Haskins 1.005 L 1.016-1.022 Urine Protein 2+ H NEGATIVE Urine Glucose (UA) NEGATIVE NEGATIVE Urine Ketones NEGATIVE NEGATIVE Urine Nitrite NEGATIVE NEGATIVE Urine Bilirubin NEGATIVE NEGATIVE Urine Urobilinogen NORMAL NORMAL MG/DL Urine Leukocyte Esterase 2+ H NEGATIVE Urine RBC (Auto) NEGATIVE NEGATIVE Urine RBC NONE /HPF Urine WBC 5-10 H /HPF Urine Squamous Epithelial Cells 25-50 H /HPF Urine Crystals NONE /LPF Urine Bacteria FEW H /HPF Urine Casts NONE /LPF Urine Mucus SMALL H /LPF Urine Culture Indicated YES Urine Opiates Screen NEGATIVE NEGATIVE Urine Oxycodone Screen POSITIVE H NEGATIVE Urine Methadone Screen NEGATIVE NEGATIVE Urine Propoxyphene Screen NEGATIVE NEGATIVE Urine Barbiturates Screen NEGATIVE NEGATIVE Ur Tricyclic Antidepressants Screen NEGATIVE NEGATIVE Urine Phencyclidine Screen NEGATIVE NEGATIVE Urine Amphetamines Screen NEGATIVE NEGATIVE Urine Methamphetamines Screen NEGATIVE NEGATIVE Urine Benzodiazepines Screen NEGATIVE NEGATIVE Urine Cocaine Screen NEGATIVE NEGATIVE Urine Cannabinoids Screen NEGATIVE NEGATIVE My Orders Orders - NATHAN,SAMY K DO Cbc With Automated Diff (07/18/18:29) Magnesium (07/18/18:) Chest 1 View, Ap/Pa Only (07/18/18:29) Ekg Tracing (07/18/18:29) Cardiac Profile 1 (07/18/18:) Comprehensive Metabolic Panel (07/18/18:) Myoglobin Serum (07/18/18:29) Protime With Inr (07/18/18:29) Partial Thromboplastin Time (07/18/18:) O2 (07/18/18:29) Monitor-Rhythm Ecg Trace Only (07/18/18:29) Aspirin Chewable Tablet (Baby Aspirin Ch (07/18/18 19:30) Nitroglycerin 0.4 Mg Btl 25's (Nitrostat (07/18/18:30) Saline Lock/Iv-Start (07/18/18 19:29) Creatine Kinase (07/18/18:29) Creatine Kinase Mb (07/18/18 19:29) Lipase (07/18/18:29) Amylase (07/18/18:29) BNP (07/18/18:29) Nitroglycerin Ointment (Nitrobid Ointme (07/18/18 19:30) Drug Screen Stat (Urine) (07/18/18 19:29) Hcg,Qualitative Serum (07/18/18:29) Ua Culture If Indicated (07/18/18:29) Ketorolac Injection (Toradol Injection) (07/18/18 19:35) Ketorolac Injection (Toradol Injection) (07/18/18 19:45) Ct Angio Chest W (07/18/18 20:18) Ct Cervical Spine Wo (07/18/18 20:18) Ct Thoracic Spine Wo (07/18/18 20:18) Hydralazine Injection (Apresoline Inject (07/18/18 20:30) Orphenadrine Injection (Norflex Injectio (07/18/18 20:30) Iohexol Injection (Omnipaque 350 Mg/Ml 1 (07/18/18 21:00) Contrast Received (Contrast Received) (07/18/18 21:00) Sodium Chloride Flush (Catheter Flush Sy (07/18/18 21:00) Ns (Ivpb) (Sodium Chloride 0.9% Ivpb Bag (07/18/18 21:00) Hydralazine Injection (Apresoline Inject (07/18/18 22:15) Urine Culture (07/18/18 22:20) Rx-Nitrofurantoin Weak[place] (Rx-Macrobid) (07/18/18 22:52) Rx-Nitrofurantoin Weak[place] (Rx-Macrobid) (07/18/18 22:57) Medications Given in ED Current Medications Medications Dose Ordered Sig/Eze Route Start Time Stop Time Status Last Admin Dose Admin Hydralazine HCl 10 mg ONCE ONCE IV 07/18/18 20:30 07/18/18 20:31 DC 07/18/18 20:29 10 MG Hydralazine HCl 10 mg ONCE ONCE IV 07/18/18 22:15 07/18/18 23:08 DC 07/18/18 22:22 10 MG Iohexol 150 ml ONCE ONCE IV 07/18/18 21:00 07/18/18 21:01 DC 07/18/18 21:19 150 ML Orphenadrine Citrate 60 mg ONCE ONCE IV 07/18/18 20:30 07/18/18 20:31 DC 07/18/18 20:28 60 MG Sodium Chloride 10 ml NEEDED PRN IV 07/18/18 21:00 07/18/18 23:08 DC 07/18/18 21:19 10 ML Sodium Chloride 100 ml ONCE ONCE IV 07/18/18 21:00 07/18/18 21:01 DC 07/18/18 21:19 80 ML Vital Signs/I&O 07/18/18 23:08 Temp 98.3 Pulse 99 Resp 18 B/P (MAP) 138/74 (95) Pulse Ox 99 O2 Delivery Room Air Capillary Refill : Less Than 3 Seconds Blood Pressure Mean: 143 Progress Note : Progress Note BP DOWN WITH MEDICATIONS--PT STATES BP IS ALWAYS IN 150'S/100'S PT STATES PAIN IS MUCH BETTER BUT NOT GONE AT TIME OF DISMISSAL ECG Initial ECG Impression Date: Jul 18, 2018 Initial ECG Impression Time: 19:32 Initial ECG Rate: 79 Initial ECG Rhythm: Normal Sinus Diagnostic Imaging Comments CXR--NO ACUTE PROCESS, PER RADIOLOGIST REPORT AT [address] CT SCANS PER RADIOLOGIST REPORTS @ 2156 CHEST ANGIOGRAM--NO P.E. OR ACUTE PROCESS CERVICAL SPINE--NO ACUTE PROCESS THORACIC SPINE--NO ACUTE PROCESS Reviewed: Reviewed by Me Departure Impression Primary Impression: LEFT SHOULDER AND UPPER BACK PAIN Additional Impressions: Uncontrolled hypertension UTI (urinary tract infection) Disposition: HOME, SELF-CARE Condition: Stable Departure-Patient Inst. Referrals: [facility] (PCP/Family) Primary Care Physician Patient Instructions: Controlling Your Blood Pressure Through Lifestyle, DASH Diet, High Blood Pressure (DC), Muscle Strain (DC), Muscle and Bone Pain (DC), Urinary Tract Infection, Adult (DC) Add. Discharge Instructions: MOIST HEAT TO AREA AT 20 MINUTE INTERVALS TAKE YOUR MEDICATIONS PRESCRIBED FOLLOW UP WITH [facility] THIS WEEK SCHEDULED All discharge instructions reviewed with patient and/or family. Voiced understanding. Scripts Nitrofurantoin Monohyd/M-Cryst (Macrobid 100 mg Capsule) 100 Mg Capsule 100 MG PO BID, #20 CAP Prov: SAMY EVANS DO 07/18/18 Tizanidine HCl (Zanaflex) 4 Mg Tablet 4 MG PO TID, #15 TAB Prov: SAMY EVNAS DO 07/18/18 Hydralazine HCl (Hydralazine HCl) 10 Mg Tablet 10 MG PO TID, #15 TAB Prov: SAMY EVANS DO 07/18/18 Meloxicam (Mobic) 15 Mg Tablet 15 MG PO DAILY, #10 TAB Prov: SAMY EVANS DO 07/18/18 Images Full Body/Extremities Full Progress SEE ADDITIONAL PAPER DIAGRAMS FOR IMAGES SAMY EVANS DO Jul 18, 2018 20:08
[2018-07-18 20:13] LABS: CREATINE KINASE MB 1.2 NG/ML (<6.6); MYOGLOBIN SERUM 24.8 NG/ML (10.0-92.0)
[2018-07-18] MEDS ORDERED: ORPHENADRINE 60 MG/2 ML (NORFLEX) AMP IV ONE (20:30)
[2018-07-18] MEDS ORDERED: hydrALAZINE (APESOLINE) 20 MG/ML VIAL IV ONE ×2 (20:30→22:15)
[2018-07-18] MEDS ORDERED: RECEIVED CONTRAST (Hold Metformin) IV SCH (21:00)
[2018-07-18] MEDS ORDERED: IOHEXOL 350 MG/ML 150 ML (OMNIPAQUE 350) VIAL IV ONE (21:00)
[2018-07-18] MEDS ORDERED: NS 100 ML (IVPB) BAG IV ONE (21:00)
[2018-07-18] MEDS ORDERED: CATHETER FLUSH 10 ML SYR IV PRN (21:00)
--- NOTE | 2018-07-18 21:39 | Diagnostic Imaging Report ---
PROCEDURE: CT cervical spine without contrast. TECHNIQUE: Multiple contiguous axial images were obtained through the cervical spine without the use of intravenous contrast. Sagittal and coronal reformations were then performed. INDICATION: Neck and left shoulder pain. COMPARISON: CT thoracic spine performed concurrently. FINDINGS: Examination of the lower cervical spine is limited due to patient's extreme body habitus which causes beam hardening artifact. Allowing for this, there is straightening of the cervical spine which could be positional. No subluxation or spondylolisthesis. No areas of high-grade spinal canal narrowing. No fracture. No cervical lymphadenopathy. Visualized aspects of the thyroid are normal. IMPRESSION: 1. Exam is mildly limited due to patient's large body habitus. 2. Allowing for this, no high-grade spinal stenosis or neuroforaminal narrowing. 3. No acute osseous abnormality. Dictated by: Dictated on workstation # [id number]
--- NOTE | 2018-07-18 21:44 | Diagnostic Imaging Report ---
PROCEDURE: CT thoracic spine without contrast. TECHNIQUE: Multiple axial computerized tomography images were obtained from the base of the thoracic spine to the vertex without intravenous contrast. INDICATION: Back pain. No trauma. COMPARISON: CT chest performed concurrently. FINDINGS: Normal alignment of the thoracic spine. No features of high-grade spinal canal narrowing although assessment of the spinal canal is very limited by patient's extremely large body habitus resulting in beam hardening artifact and photon starvation. No fracture. IMPRESSION: Grossly normal thoracic spine allowing for patient's large body habitus. Dictated by: Dictated on workstation # [id number]
--- NOTE | 2018-07-18 21:47 | Diagnostic Imaging Report ---
PROCEDURE: CT angiography of the chest with contrast. TECHNIQUE: Multiple contiguous axial images were obtained through the chest after uneventful bolus administration of intravenous contrast. 2D reconstructed CTA MIP acquisitions were also performed. INDICATION: Chest pain and left shoulder pain. COMPARISON: CT thoracic spine performed concurrently. FINDINGS: Vasculature: No pulmonary emboli. No CT evidence of pulmonary hypertension or right ventricular strain. Thoracic aorta is normal in caliber. No aortic dissection or pseudoaneurysm. Heart and mediastinum: Visualized thyroid is normal. No supraclavicular, axillary, or intra-thoracic lymphadenopathy. The heart is normal in size without pericardial effusion. Pleura: No pleural effusion or pneumothorax. Lungs and airway: No endoluminal lesion in the trachea or central bronchi. No pulmonary mass, nodule or consolidation. Upper abdomen: Diffuse hepatic steatosis. Cholecystectomy. Musculoskeletal: No concerning osseous lesion. IMPRESSION: 1. No acute cardiopulmonary process; specifically, no pulmonary emboli or acute aortic syndrome. 2. Diffuse hepatic steatosis. Dictated by: Dictated on workstation # [id number]
[2018-07-18] MEDS ORDERED: HYDR-3922 PO (22:07)
[2018-07-18] MEDS ORDERED: MELO15TA14 PO (22:07)
[2018-07-18] MEDS ORDERED: TIZA4TAB11 PO (22:07)
[2018-07-18 22:35] LABS: BILIRUBIN,URINE NEGATIVE (NEGATIVE); COLOR,URINE YELLOW; GLUCOSE, URINE (UA) NEGATIVE (NEGATIVE); KETONES,URINE NEGATIVE (NEGATIVE); LEUKOCYTE ESTERASE ,URINE 2+ (NEGATIVE); NITRITE,URINE NEGATIVE (NEGATIVE); PH,URINE 7 (5-9); PROTEIN,URINE 2+ (NEGATIVE); UROBILINOGEN,URINE NORMAL (NORMAL)
[2018-07-18 22:43] LABS: BACTERIA,URINE FEW /HPF; CLARITY,URINE SL CLOUDY; SQUAMOUS EPITHELIAL CELL,UR 25-50 /HPF
[2018-07-18 22:47] LABS: AMPHETAMINE SCREEN, URINE NEGATIVE (NEGATIVE); BARBITURATE SCREEN URINE NEGATIVE (NEGATIVE); BENZODIAZEPINES SCREEN URINE NEGATIVE (NEGATIVE); CANNABINOID SCREEN, URINE NEGATIVE (NEGATIVE); COCAINE SCREEN URINE NEGATIVE (NEGATIVE); METHADONE STAT NEGATIVE (NEGATIVE); METHAMPHETAMINE SCREEN URINE S NEGATIVE (NEGATIVE); OPIATE SCREEN URINE NEGATIVE (NEGATIVE); OXYCODONE STAT POSITIVE (NEGATIVE); PROPOXYPHENE STAT NEGATIVE (NEGATIVE); TRICYCLIC ANTIDEPRESSANTS SCRE NEGATIVE (NEGATIVE)
[2018-07-18] MEDS ORDERED: RX-NITROFURANTOIN 100 MG (MACROBID) CAP PPK#2 PO STA (22:52)
[2018-07-18] MEDS ORDERED: NITR-65 PO (22:53)
[2018-07-18] MEDS ORDERED: RX-NITROFURANTOIN 100 MG (MACROBID) CAP PPK#2 PO ONE (22:57)
[2018-07-18 23:08] VITALS: BP 138/74
== END 2018-07-18 23:08 | disposition home or self-care (01) ==
LOC: ER 17:35 → EDUNIT# 17:35 → ER 23:08
DX: M25.512 Pain in left shoulder (principal); M54.6 Pain in thoracic spine; I10 Essential (primary) hypertension; N39.0 Urinary tract infection, site not specified; G43.909 Migraine, unspecified, not intractable, without status migrainosus; E11.9 Type 2 diabetes mellitus without complications; E66.9 Obesity, unspecified; F17.210 Nicotine dependence, cigarettes, uncomplicated; Z87.19 Personal history of other diseases of the digestive system; Z90.49 Acquired absence of other specified parts of digestive tract; Z68.43 Body mass index [BMI] 50.0-59.9, adult
CPT/HCPCS: 36415; 71045; 71275; 72125; 72128; 80053; 80306; 81000; 82150; 82550; 82553; 83690; 83735; 83874; 83880; 84484; 84703; 85025; 85610; 85730; 87088; 93005; 93041